=== PATIENT | female | born 1950 | race American Indian/Alaskan Native ===

== ENCOUNTER 2018-01-08 18:05 | Emergency (ER) | payer MEDICARE, MEDICAID ==
[2018-01-08] MEDS ORDERED: Sodium Chloride 0.9% 10 ML Syringe FLUSH PRN (18:34)
[2018-01-08] MEDS ORDERED: Codeine/Promethazine 10-6.25 MG/5 ML Syrup 5 ML UD Cup PO ONE (18:35)
[2018-01-08] MEDS ORDERED: Albuterol/Ipratropium 3.0-0.5 MG/3 ML Neb Soln NEB ONE (18:35)
[2018-01-08] MEDS ORDERED: methylPREDNISolone Sodium Succinate 125 MG/2 ML SDV IVPUSH ONE (18:36)
[2018-01-08 19:17] LABS: CHLORIDE,CL 107 mmol/L (101-111); SODIUM,NA 138 mmol/L (135-145)
--- NOTE | 2018-01-08 19:22 | EDM.PDOC ---
ED HPI GENERAL MEDICAL PROBLEM - General Chief Complaint: Respiratory Problem Stated Complaint: [id number] SOB - COUGHING Time Seen by Provider: 01/08/18 18:55 Source of Information: Reports: Patient History Limitations: Reports: No Limitations - History of Present Illness INITIAL COMMENTS - FREE TEXT/NARRATIVE: This 67 yo female patient reports to the ED with increased shortness of breath. The patient reports she was at the [facility] today (from [id number]) and was given an inhaler, cough medication and antibiotics. The patient reports she took the inhaler x1 and the cough medication x1 with no symptom relief. The patient has not taken any of the antibiotics at this time. The patient reports she was advised that she had bronchitis. The patient has not had similar symptoms in the past. Onset: Today Duration: Constant, Getting Worse Location: Reports: Chest Quality: Reports: Other Severity: Moderate Improves with: Reports: None Worsens with: Reports: None Associated Symptoms: Reports: cough w sputum, Shortness of Breath Treatments [employer]: Reports: Other (see below) (inhaler, cough medication) Chest Pain Score (Numeric/FACES): 7 - Related Data Allergies Allergy/AdvReac Type Severity Reaction Status Date / Time No Known Allergies Allergy Verified 10/25/13 18:28 Home Meds: Home Meds Celecoxib [CeleBREX] 200 mg PO DAILY 10/25/13 [History] buPROPion [Wellbutrin XL] 300 mg PO BEDTIME 10/25/13 [History] Past Medical History Respiratory History: Reports: Bronchitis, Recurrent Social & Family History - Tobacco Use Smoking Status *Q: Current Every Day Smoker Years of Tobacco use: 40 Packs/Tins Daily: 0.7 - Caffeine Use Caffeine Use: Reports: Coffee, Soda, Tea - Recreational Drug Use Recreational Drug Use: No - Living Situation & Occupation Living situation: Reports: with Family Occupation: Retired ED ROS GENERAL - Review of Systems Review Of Systems: ROS reveals no pertinent complaints other than HPI. ED EXAM, GENERAL - Physical Exam Exam: See Below Exam Limited By: No Limitations General Appearance: Alert, WD/WN, Moderate Distress Eye Exam: Bilateral Eye: EOMI, Normal Inspection, PERRL Ears: Normal External Exam, Normal Canal, Hearing Grossly Normal, Normal TMs Nose: Normal Inspection, Normal Mucosa, No Blood Throat/Mouth: Normal Inspection, Normal Lips, Normal Teeth, Normal Gums, Normal Oropharynx, Normal Voice, No Airway Compromise Head: Atraumatic, Normocephalic Neck: Normal Inspection, Supple, Non-Tender, Full Range of Motion Respiratory/Chest: Decreased Breath Sounds, Rhonchi (diffuse) Cardiovascular: Normal Peripheral Pulses, Regular Rate, Rhythm, No Edema, No Gallop, No JVD, No Murmur, No Rub GI/Abdominal: Normal Bowel Sounds, Soft, Non-Tender, No Organomegaly, No Distention, No Abnormal Bruit, No Mass (Female) Exam: Deferred Rectal (Female) Exam: Deferred Extremities: Normal Inspection, Normal Range of Motion, Non-Tender, Normal Capillary Refill, No Pedal Edema Neurological: Alert, Oriented, CN II-XII Intact, Normal Cognition, Normal Gait, Normal Reflexes, No Motor/Sensory Deficits Psychiatric: Normal Affect, Normal Mood Skin Exam: Warm, Dry, Intact, Normal Color, No Rash Lymphatic: No Adenopathy Course - Vital Signs Last Recorded V/S: Last Vital Signs Temp 36.8 C 01/08/18 18:34 Pulse 104 H 01/08/18 18:34 Resp 20 01/08/18 18:34 BP 120/75 01/08/18 18:34 Pulse Ox 96 01/08/18 18:34 - Orders/Labs/Meds Orders: Active Orders 24 hr Category Date Time Status Peripheral IV Care [RC] . DIRECTED Care 01/08/18 18:35 Active RT Aerosol Therapy [RC] ASDIRECTED Care 01/08/18 18:35 Active CULTURE BLOOD [BC] Stat Lab 01/08/18 18:50 Received CULTURE BLOOD [BC] Stat Lab 01/08/18 18:53 Received Sodium Chloride 0.9% [Saline Flush] Med 01/08/18 18:34 Active 10 ml FLUSH ASDIRECTED PRN Blood Culture x2 Reflex Set [OM.PC] Stat Oth 01/08/18 18:34 Ordered Peripheral IV Insertion Adult [OM.PC] Stat Oth 01/08/18 18:34 Ordered Medication Orders Sodium Chloride (Saline Flush) 10 ml FLUSH ASDIRECTED PRN PRN Reason: Keep Vein Open Last Admin: 01/08/18 19:11 Dose: 10 ml Labs: Laboratory Tests 01/08/18 01/08/18 01/08/18 Range/Units 18:50 18:50 18:50 WBC 13.0 H (5.0-10.0) 10^3/uL RBC 4.70 (4.2-5.4) 10^6/uL Hgb 13.8 (12.0-16.0) g/dL Hct 42.2 (37.0-47.0) % MCV 89.8 (80-100) fL MCH 29.4 (27.0-34.0) pg MCHC 32.7 L (33.0-35.0) g/dL Plt Count 275 (150-450) 10^3/uL Neut % (Auto) 72.4 (42.2-75.2) % Lymph % (Auto) 14.6 L (20.5-50.1) % [place] % (Auto) 5.8 (2-8) % Eos % (Auto) 7.0 H (1.0-3.0) % Baso % (Auto) 0.2 (0.0-1.0) % Sodium 138 (135-145) mmol/L Potassium 3.4 L (3.6-5.0) mmol/L Chloride 107 (101-111) mmol/L Carbon Dioxide 23.0 (21.0-31.0) mmol/L Anion Gap 11.4 BUN 11 (7-18) mg/dL Creatinine 0.7 (0.6-1.3) mg/dL Est Cr Clr Drug Dosing 70.18 mL/min Estimated GFR (MDRD) > 60 BUN/Creatinine Ratio 15.71 Glucose 117 H (74-105) mg/dL Lactic Acid 1.2 (0.5-2.2) mmol/L Calcium 9.3 (8.4-10.2) mg/dl Total Bilirubin 0.6 (0.2-1.0) mg/dL AST 18 (10-42) IU/L ALT 14 (10-60) IU/L Alkaline Phosphatase 104 (42-121) IU/L Total Protein 8.0 (6.7-8.2) g/dl Albumin 4.0 (3.2-5.5) g/dl Globulin 4.0 Albumin/Globulin Ratio 1.00 Meds: Medications Generic Name Dose Route Start Last Admin Trade Name Freq PRN Reason Stop Dose Admin Sodium Chloride 10 ml 01/08/18 18:34 01/08/18 19:11 Saline Flush FLUSH 10 ml ASDIRECTED PRN Administration Keep Vein Open Discontinued Medications Generic Name Dose Route Start Last Admin Trade Name Urban PRN Reason Stop Dose Admin Albuterol/Ipratropium 3 ml 01/08/18 18:35 01/08/18 19:07 Duoneb 3.0-0.5 Mg/3 Ml NEB 01/08/18 18:36 3 ml ONETIME ONE Administration Ceftriaxone Sodium 1 gm 01/08/18 19:41 Rocephin IVPUSH 01/08/18 19:42 ONETIME ONE Methylprednisolone Sodium Succinate 125 mg 01/08/18 18:36 01/08/18 19:11 Solu-Medrol IVPUSH 01/08/18 18:37 125 mg ONETIME ONE Administration Promethazine HCl/Codeine 10 ml 01/08/18 18:35 01/08/18 19:08 Phenergan With Codeine PO 01/08/18 18:36 10 ml ONETIME ONE Administration Departure - Departure Time of Disposition: 19:42 Disposition: Home, Self-Care 01 Condition: Fair Clinical Impression: Bronchitis - Discharge Information Instructions: Upper Respiratory Infection, Adult, [id number] Referrals: Rogelio Durant [Primary Care Provider] - Forms: ED Department Discharge Care Plan Goals: The patient was advised of the examination and lab results during the visit. The patient was given an injection of SoluMedrol, a nebulizer treatment and a dose of IV Rocephin while in the ED. The patient was discharged with a script for a Medrol Dose Pack to take as directed. The patient should start the Medrol Dose Pack tomorrow. The patient should continue with the treatments prescribed by the [facility]. If the patient has any additional symptoms or concerns, the patient should follow-up with her primary care facility or return to the emergency department.
[2018-01-08] MEDS ORDERED: cefTRIAXone 1 GM Vial IVPUSH ONE (19:41)
== END 2018-01-08 20:06 | disposition home or self-care (01) ==
LOC: DL.ED 18:05
DX: J40 Bronchitis, not specified as acute or chronic (principal); F17.210 Nicotine dependence, cigarettes, uncomplicated; Z79.899 Other long term (current) drug therapy
CPT/HCPCS: 36415; 71046; 80053; 83605; 85025; 87040; 94640; 96374; 96375; 99283; 99285; A9270; J0696; J2930; J7050

== ENCOUNTER 2018-01-20 20:07 | Inpatient (IN) | payer MEDICARE, MEDICAID ==
[2018-01-20] MEDS ORDERED: methylPREDNISolone Sodium Succinate 125 MG/2 ML SDV IVPUSH ONE (20:10)
[2018-01-20] MEDS ORDERED: Codeine/Promethazine 10-6.25 MG/5 ML Syrup 5 ML UD Cup PO ONE (20:10)
--- NOTE | 2018-01-20 20:17 | EDM.PDOC ---
ED HPI GENERAL MEDICAL PROBLEM - General Chief Complaint: Respiratory Problem Stated Complaint: [id number] IN BY AMBULANCE Time Seen by Provider: 01/20/18 20:14 Source of Information: Reports: Patient History Limitations: Reports: No Limitations - History of Present Illness INITIAL COMMENTS - FREE TEXT/NARRATIVE: was here 12 days ago had w/u, d/c with Rx. got bad again today. cough & sob. nebs not helping. - Related Data Allergies Allergy/AdvReac Type Severity Reaction Status Date / Time No Known Allergies Allergy Verified 01/20/18 20:37 Home Meds: Home Meds Celecoxib [CeleBREX] 200 mg PO DAILY 10/25/13 [History] buPROPion [Wellbutrin XL] 300 mg PO BEDTIME 10/25/13 [History] Past Medical History Respiratory History: Reports: Bronchitis, Recurrent Social & Family History - Caffeine Use Caffeine Use: Reports: Coffee, Soda, Tea - Living Situation & Occupation Living situation: Reports: with Family Occupation: Retired ED ROS GENERAL - Review of Systems Review Of Systems: ROS reveals no pertinent complaints other than HPI. ED EXAM, GENERAL - Physical Exam Exam: See Below Exam Limited By: No Limitations General Appearance: Alert, WD/WN, Mild Distress, Other (cough spasm) Ears: Hearing Grossly Normal Throat/Mouth: Normal Voice, No Airway Compromise Head: Atraumatic Neck: Non-Tender, Full Range of Motion Respiratory/Chest: No Accessory Muscle Use, Rhonchi, Wheezing Cardiovascular: Regular Rate, Rhythm GI/Abdominal: Soft, Non-Tender Neurological: Alert, Oriented, Normal Cognition, Normal Gait, No Motor/Sensory Deficits Psychiatric: Flat Affect Skin Exam: Warm, Dry, Normal Color Lymphatic: No Adenopathy Course - Vital Signs Last Recorded V/S: Last Vital Signs Temp 36.6 C 01/20/18 20:11 Pulse 106 H 01/20/18 20:11 Resp 21 H 01/20/18 20:11 BP 128/64 01/20/18 20:11 Pulse Ox 98 01/20/18 20:11 - Orders/Labs/Meds Orders: Active Orders 24 hr Category Date Time Status CULTURE BLOOD [BC] Stat Lab 01/20/18 20:15 Received Labs: Laboratory Tests 01/20/18 01/20/18 01/20/18 Range/Units 20:15 20:15 20:15 WBC 14.4 H (5.0-10.0) 10^3/uL RBC 4.79 (4.2-5.4) 10^6/uL Hgb 14.0 (12.0-16.0) g/dL Hct 43.1 (37.0-47.0) % MCV 90.0 (80-100) fL MCH 29.2 (27.0-34.0) pg MCHC 32.5 L (33.0-35.0) g/dL Plt Count 262 (150-450) 10^3/uL Neut % (Auto) 68.7 (42.2-75.2) % Lymph % (Auto) 14.6 L (20.5-50.1) % [place] % (Auto) 5.8 (2-8) % Eos % (Auto) 10.7 H (1.0-3.0) % Baso % (Auto) 0.2 (0.0-1.0) % Sodium 142 (135-145) mmol/L Potassium 3.5 L (3.6-5.0) mmol/L Chloride 110 (101-111) mmol/L Carbon Dioxide 23.0 (21.0-31.0) mmol/L Anion Gap 12.5 BUN 8 (7-18) mg/dL Creatinine 0.8 (0.6-1.3) mg/dL Est Cr Clr Drug Dosing TNP Estimated GFR (MDRD) > 60 BUN/Creatinine Ratio 10.00 Glucose 101 (74-105) mg/dL Lactic Acid 2.3 H (0.5-2.2) mmol/L Calcium 8.9 (8.4-10.2) mg/dl Total Bilirubin 0.7 (0.2-1.0) mg/dL AST 20 (10-42) IU/L ALT 16 (10-60) IU/L Alkaline Phosphatase 103 (42-121) IU/L Total Protein 7.3 (6.7-8.2) g/dl Albumin 3.9 (3.2-5.5) g/dl Globulin 3.4 Albumin/Globulin Ratio 1.15 Urine Color (YELLOW) Urine Appearance (CLEAR) Urine pH (5.0-9.0) Ur Specific [place] (1.005-1.030) Urine Protein (NEGATIVE) Urine Glucose (UA) (NEGATIVE) Urine Ketones (NEGATIVE) Urine Occult Blood (NEGATIVE) Urine Nitrite (NEGATIVE) Urine Bilirubin (NEGATIVE) Urine Urobilinogen (0.2-1.0) mg/dL Ur Leukocyte Esterase (NEGATIVE) Urine RBC /HPF Urine WBC (0-5/HPF) /HPF Ur Epithelial Cells /HPF Urine Bacteria (0-FEW/HPF) /HPF 01/20/18 Range/Units 20:31 WBC (5.0-10.0) 10^3/uL RBC (4.2-5.4) 10^6/uL Hgb (12.0-16.0) g/dL Hct (37.0-47.0) % MCV (80-100) fL MCH (27.0-34.0) pg MCHC (33.0-35.0) g/dL Plt Count (150-450) 10^3/uL Neut % (Auto) (42.2-75.2) % Lymph % (Auto) (20.5-50.1) % [place] % (Auto) (2-8) % Eos % (Auto) (1.0-3.0) % Baso % (Auto) (0.0-1.0) % Sodium (135-145) mmol/L Potassium (3.6-5.0) mmol/L Chloride (101-111) mmol/L Carbon Dioxide (21.0-31.0) mmol/L Anion Gap BUN (7-18) mg/dL Creatinine (0.6-1.3) mg/dL Est Cr Clr Drug Dosing Estimated GFR (MDRD) BUN/Creatinine Ratio Glucose (74-105) mg/dL Lactic Acid (0.5-2.2) mmol/L Calcium (8.4-10.2) mg/dl Total Bilirubin (0.2-1.0) mg/dL AST (10-42) IU/L ALT (10-60) IU/L Alkaline Phosphatase (42-121) IU/L Total Protein (6.7-8.2) g/dl Albumin (3.2-5.5) g/dl Globulin Albumin/Globulin Ratio Urine Color Yellow (YELLOW) Urine Appearance Clear (CLEAR) Urine pH 5.5 (5.0-9.0) Ur Specific [place] <= 1.005 (1.005-1.030) Urine Protein Negative (NEGATIVE) Urine Glucose (UA) Negative (NEGATIVE) Urine Ketones Negative (NEGATIVE) Urine Occult Blood Trace-intact H (NEGATIVE) Urine Nitrite Negative (NEGATIVE) Urine Bilirubin Negative (NEGATIVE) Urine Urobilinogen 0.2 (0.2-1.0) mg/dL Ur Leukocyte Esterase Negative (NEGATIVE) Urine RBC 0-5 /HPF Urine WBC Not seen (0-5/HPF) /HPF Ur Epithelial Cells Rare /HPF Urine Bacteria Rare (0-FEW/HPF) /HPF Meds: Medications Discontinued Medications Generic Name Dose Route Start Last Admin Trade Name Freq PRN Reason Stop Dose Admin Methylprednisolone Sodium Succinate 125 mg 01/20/18 20:10 01/20/18 20:25 Solu-Medrol IVPUSH 01/20/18 20:11 125 mg ONETIME ONE Administration Promethazine HCl/Codeine 5 ml 01/20/18 20:10 01/20/18 20:25 Phenergan With Codeine PO 01/20/18 20:11 5 ml ONETIME ONE Administration - Re-Assessments/Exams Free Text/Narrative Re-Assessment/Exam: 01/20/18 21:[address] Bolden who kindly admitted pt. Departure - Departure Time of Disposition: 21:42 Disposition: Admitted As Inpatient 66 Condition: Good Clinical Impression: Pneumonia Qualifiers: Pneumonia type: due to unspecified organism Lung location: lower lobe of lung - Discharge Information Forms: ED Department Discharge - My Orders Last 24 Hours: My Active Orders 01/20/18 20:15 CULTURE BLOOD [BC] Stat - Assessment/Plan Last 24 Hours: My Active Orders 01/20/18 20:15 CULTURE BLOOD [BC] Stat
[2018-01-20 20:39] LABS: CHLORIDE,CL 110 mmol/L (101-111); SODIUM,NA 142 mmol/L (135-145)
[2018-01-20] MEDS ORDERED: cefTRIAXone 500 MG Vial IVPUSH ONE (22:02)
[2018-01-20] MEDS ORDERED: Potassium Chloride 10 MEQ Tab.ER PO ONE (22:38)
[2018-01-20] MEDS ORDERED: Docusate Sodium 100 MG Cap PO PRN (22:39)
[2018-01-20] MEDS ORDERED: oxyCODONE 5 MG Tab PO PRN (22:39)
[2018-01-20] MEDS ORDERED: Ondansetron 4 MG/2 ML SDV IVPUSH PRN (22:39)
[2018-01-20] MEDS ORDERED: Sodium Chloride 0.9% 10 ML Syringe FLUSH PRN (22:39)
[2018-01-20] MEDS ORDERED: Ondansetron 4 MG Tab.DIS PO PRN (22:39)
[2018-01-20] MEDS ORDERED: Ibuprofen 400 MG Tab PO PRN (22:39)
[2018-01-20] MEDS ORDERED: Zolpidem 5 MG Tab PO PRN (22:39)
[2018-01-20] MEDS ORDERED: Sodium Chloride 0.9% 500 ML IV SCH (22:45)
--- NOTE | 2018-01-20 22:50 | PCM.HP ---
H&P History of Present Illness - General Date of Service: 01/20/18 Admit Problem/Dx: Admission Diagnosis/Problem Admission Diagnosis/Problem Pneumonia - History of Present Illness Initial Comments - Free Text/Narative: The patient is a 67-year-old lady with a history of smoking. She has a history of depression. The patient has had cough associated shortness of breath for about 2 weeks. She was evaluated about 2 weeks ago and was treated with azithromycin. She also had Robitussin at home which did not help the coughing. She says she has coughing spells that makes her very anxious and short of breath. She did not notice fever, the sputum is mostly dry, nonproductive. She has been a smoker but in the past 2 weeks she is trying to cut down. No associated chest pain but she heard herself wheezing. She has had albuterol to use at home. No abdominal pain, no leg swelling. - Related Data Allergies/Adverse Reactions: Allergies Allergy/AdvReac Type Severity Reaction Status Date / Time No Known Allergies Allergy Verified 01/20/18 22:49 Home Medications: Home Meds Celecoxib [CeleBREX] 200 mg PO DAILY 10/25/13 [History] buPROPion [Wellbutrin XL] 300 mg PO BEDTIME 10/25/13 [History] Past Medical History Respiratory History: Reports: Bronchitis, Recurrent Psychiatric History: Reports: Depression Social & Family History - Tobacco Use Smoking Status *Q: Current Every Day Smoker Years of Tobacco use: 47 Packs/Tins Daily: 20 - Caffeine Use Caffeine Use: Reports: Coffee, Soda, Tea - Living Situation & Occupation Living situation: Reports: with Family Occupation: Retired H&P Review of Systems - Review of Systems: Review Of Systems: See Below General: Reports: Malaise, Weakness. Denies: Fever HEENT: Reports: No Symptoms Pulmonary: Reports: Shortness of Breath, Wheezing, Cough. Denies: Sputum, Hemoptysis Cardiovascular: Denies: Chest Pain, Edema Gastrointestinal: Denies: Abdominal Pain Genitourinary: Denies: Dysuria Musculoskeletal: Denies: Neck Pain Psychiatric: Denies: Confusion Exam - Exam Exam: See Below - Vital Signs Vital Signs: Last Vital Signs Temp 36.8 C 01/20/18 22:14 Pulse 99 01/20/18 22:14 Resp 19 06/17/18 22:14 BP 153/80 H 01/20/18 22:14 Pulse Ox 6 L 01/20/18 22:14 - Exam Quality Assessment: No: Supplemental Oxygen General: Alert, Oriented Neck: Supple Lungs: Normal Respiratory Effort, Decreased Breath Sounds. No: Wheezing Cardiovascular: Regular Rate, Regular Rhythm GI/Abdominal Exam: Normal Bowel Sounds, Soft, Non-Tender Extremities: No Pedal Edema Neuro Extensive - Mental Status: Alert, Oriented x3, Normal Mood/Affect - Patient Data Lab Results Last 24 hrs: Laboratory Results - last 24 hr 01/20/18 01/20/18 01/20/18 Range/Units 20:15 20:15 20:15 WBC 14.4 H (5.0-10.0) 10^3/uL RBC 4.79 (4.2-5.4) 10^6/uL Hgb 14.0 (12.0-16.0) g/dL Hct 43.1 (37.0-47.0) % MCV 90.0 (80-100) fL MCH 29.2 (27.0-34.0) pg MCHC 32.5 L (33.0-35.0) g/dL Plt Count 262 (150-450) 10^3/uL Neut % (Auto) 68.7 (42.2-75.2) % Lymph % (Auto) 14.6 L (20.5-50.1) % [place] % (Auto) 5.8 (2-8) % Eos % (Auto) 10.7 H (1.0-3.0) % Baso % (Auto) 0.2 (0.0-1.0) % Sodium 142 (135-145) mmol/L Potassium 3.5 L (3.6-5.0) mmol/L Chloride 110 (101-111) mmol/L Carbon Dioxide 23.0 (21.0-31.0) mmol/L Anion Gap 12.5 BUN 8 (7-18) mg/dL Creatinine 0.8 (0.6-1.3) mg/dL Est Cr Clr Drug Dosing TNP Estimated GFR (MDRD) > 60 BUN/Creatinine Ratio 10.00 Glucose 101 (74-105) mg/dL Lactic Acid 2.3 H (0.5-2.2) mmol/L Calcium 8.9 (8.4-10.2) mg/dl Total Bilirubin 0.7 (0.2-1.0) mg/dL AST 20 (10-42) IU/L ALT 16 (10-60) IU/L Alkaline Phosphatase 103 (42-121) IU/L Total Protein 7.3 (6.7-8.2) g/dl Albumin 3.9 (3.2-5.5) g/dl Globulin 3.4 Albumin/Globulin Ratio 1.15 Urine Color (YELLOW) Urine Appearance (CLEAR) Urine pH (5.0-9.0) Ur Specific [place] (1.005-1.030) Urine Protein (NEGATIVE) Urine Glucose (UA) (NEGATIVE) Urine Ketones (NEGATIVE) Urine Occult Blood (NEGATIVE) Urine Nitrite (NEGATIVE) Urine Bilirubin (NEGATIVE) Urine Urobilinogen (0.2-1.0) mg/dL Ur Leukocyte Esterase (NEGATIVE) Urine RBC /HPF Urine WBC (0-5/HPF) /HPF Ur Epithelial Cells /HPF Urine Bacteria (0-FEW/HPF) /HPF // Range/Units 20:31 WBC (5.0-10.0) 10^3/uL RBC (4.2-5.4) 10^6/uL Hgb (12.0-16.0) g/dL Hct (37.0-47.0) % MCV (80-100) fL MCH (27.0-34.0) pg MCHC (33.0-35.0) g/dL Plt Count (150-450) 10^3/uL Neut % (Auto) (42.2-75.2) % Lymph % (Auto) (20.5-50.1) % [place] % (Auto) (2-8) % Eos % (Auto) (1.0-3.0) % Baso % (Auto) (0.0-1.0) % Sodium (135-145) mmol/L Potassium (3.6-5.0) mmol/L Chloride (101-111) mmol/L Carbon Dioxide (21.0-31.0) mmol/L Anion Gap BUN (7-18) mg/dL Creatinine (0.6-1.3) mg/dL Est Cr Clr Drug Dosing Estimated GFR (MDRD) BUN/Creatinine Ratio Glucose (74-105) mg/dL Lactic Acid (0.5-2.2) mmol/L Calcium (8.4-10.2) mg/dl Total Bilirubin (0.2-1.0) mg/dL AST (10-42) IU/L ALT (10-60) IU/L Alkaline Phosphatase (42-121) IU/L Total Protein (6.7-8.2) g/dl Albumin (3.2-5.5) g/dl Globulin Albumin/Globulin Ratio Urine Color Yellow (YELLOW) Urine Appearance Clear (CLEAR) Urine pH 5.5 (5.0-9.0) Ur Specific [place] <= 1.005 (1.005-1.030) Urine Protein Negative (NEGATIVE) Urine Glucose (UA) Negative (NEGATIVE) Urine Ketones Negative (NEGATIVE) Urine Occult Blood Trace-intact H (NEGATIVE) Urine Nitrite Negative (NEGATIVE) Urine Bilirubin Negative (NEGATIVE) Urine Urobilinogen 0.2 (0.2-1.0) mg/dL Ur Leukocyte Esterase Negative (NEGATIVE) Urine RBC 0-5 /HPF Urine WBC Not seen (0-5/HPF) /HPF Ur Epithelial Cells Rare /HPF Urine Bacteria Rare (0-FEW/HPF) /HPF Result Diagrams: 01/20/18 20:15 01/20/18 20:15 Imaging Impressions Last 24 hrs: Chest x-ray per official reading right lower lobe infiltrate. - Problem List (1) Bronchitis SNOMED Code(s): 19937997 ICD Code: J40 - BRONCHITIS, NOT SPECIFIED ACUTE OR CHRONIC Status: Acute Current Visit: No (2) Pneumonia SNOMED Code(s): 473509415 ICD Code: J18.9 - PNEUMONIA, UNSPECIFIED ORGANISM Status: Acute Current Visit: No Qualifiers: Pneumonia type: due to unspecified organism Lung location: lower lobe of lung Problem List Initiated/Reviewed/Updated: Yes Orders Last 24hrs: Active Orders 24 hr Category Date Time Status Patient Status [ADT] Routine ADT 01/20/18 22:39 Ordered Oxygen Therapy [RC] PRN Care 01/20/18 22:39 Ordered Peripheral IV Care [RC] . DIRECTED Care 01/20/18 22:41 Ordered RT Aerosol Therapy [RC] ASDIRECTED Care 01/20/18 22:38 Ordered Up With Assistance [RC] ASDIRECTED Care 01/20/18 22:39 Ordered VTE/DVT Education [RC] PER UNIT ROUTINE Care 01/20/18 22:39 Ordered Vital Signs [RC] Q4H Care 01/20/18 22:39 Ordered Regular Diet [DIET] Diet 01/20/18 Breakfast Ordered BASIC METABOLIC PANEL,BMP [CHEM] AM Lab 01/21/18 05:15 Ordered CBC WITH AUTO DIFF [HEME] AM Lab 01/21/18 05:15 Ordered CULTURE BLOOD [BC] Stat Lab 01/20/18 20:15 Received CULTURE SPUTUM + SMEAR [RM] Routine Lab 01/20/18 22:35 Ordered LACTIC ACID [CHEM] Timed Lab 01/20/18 23:45 Ordered Acetaminophen [Tylenol] Med 01/20/18 22:39 Ordered 650 mg PO Q4H PRN Albuterol [Proventil Neb Soln] Med 01/20/18 22:38 Ordered 2.5 mg NEB Q6HRRT PRN Azithromycin [Zithromax] 500 mg Med 01/20/18 22:45 Ordered Sodium Chloride 0.9% [Normal Saline] 250 ml IV Q24H Celecoxib [CeleBREX] Med 01/21/18 09:00 Ordered 200 mg PO DAILY Dextromethorphan/guaiFENesin [Robitussin DM] Med 01/20/18 22:31 Ordered 10 ml PO Q6H PRN Docusate Sodium [Colace] Med 01/20/18 22:39 Ordered 100 mg PO BID PRN Heparin Sodium Med 01/21/18 06:00 Ordered 5,000 units SUBCUT Q8HR Ibuprofen [Motrin] Med 01/20/18 22:39 Ordered 400 mg PO Q6H PRN Ondansetron [Zofran ODT] Med 01/20/18 22:39 Ordered 4 mg PO Q4H PRN Ondansetron [Zofran] Med 01/20/18 22:39 Ordered 4 mg IVPUSH Q6H PRN Potassium Chloride [Klor-Con 10] Med 01/20/18 22:38 Once 40 meq PO ONETIME ONE Sodium Chloride 0.9% [Normal Saline] 500 ml Med 01/20/18 22:45 Ordered IV ASDIRECTED Sodium Chloride 0.9% [Saline Flush] Med 01/20/18 22:39 Ordered 10 ml FLUSH ASDIRECTED PRN Zolpidem [Ambien] Med 01/20/18 22:39 Ordered 5 mg PO BEDTIME PRN buPROPion [Wellbutrin XL] Med 01/21/18 21:00 Ordered 300 mg PO BEDTIME cefTRIAXone [Rocephin] Med 01/21/18 22:00 Ordered 1 gm IVPUSH Q24H oxyCODONE Med 01/20/18 22:39 Ordered 5 mg PO Q4H PRN Antiembolic Hose [OM.PC] Per Unit Routine Oth 01/20/18 22:40 Ordered Peripheral IV Insertion Adult [OM.PC] Routine Oth 01/20/18 22:39 Ordered Saline Lock Insert [OM.PC] Routine Oth 01/20/18 22:39 Ordered Resuscitation Status Routine Resus Stat 01/20/18 22:39 Ordered Medication Orders Acetaminophen (Tylenol) 650 mg PO Q4H PRN PRN Reason: Pain (Mild 1-3)/fever Albuterol (Proventil Neb Soln) 2.5 mg NEB Q6HRRT PRN PRN Reason: sob Ceftriaxone Sodium (Rocephin) 1 gm IVPUSH Q24H JACKY Docusate Sodium (Colace) 100 mg PO BID PRN PRN Reason: Constipation Guaifenesin/Phenylephrine HCl (Robitussin Dm) 10 ml PO Q6H PRN PRN Reason: Cough Heparin Sodium (Porcine) (Heparin Sodium) 5,000 units SUBCUT Q8HR JACKY Azithromycin 500 mg/ Sodium (Chloride) 250 mls @ 250 mls/hr IV Q24H JACKY Sodium Chloride (Normal Saline) 500 mls @ 250 mls/hr IV ASDIRECTED JACKY Stop: 01/21/18 00:46 Ibuprofen (Motrin) 400 mg PO Q6H PRN PRN Reason: Pain (mild 1-3) Non-Formulary Medication (Bupropion [Wellbutrin Xl]) 300 mg PO BEDTIME JACKY Non-Formulary Medication (Celecoxib [Celebrex]) 200 mg PO DAILY JACKY Ondansetron HCl (Zofran Odt) 4 mg PO Q4H PRN PRN Reason: nausea, able to take PO Ondansetron HCl (Zofran) 4 mg IVPUSH Q6H PRN PRN Reason: Nausea/Vomiting Oxycodone HCl (Oxycodone) 5 mg PO Q4H PRN PRN Reason: Pain (moderate 4-6) Potassium Chloride (Klor-Con 10) 40 meq PO ONETIME ONE Stop: 01/20/18 22:39 Sodium Chloride (Saline Flush) 10 ml FLUSH ASDIRECTED PRN PRN Reason: Keep Vein Open Zolpidem Tartrate (Ambien) 5 mg PO BEDTIME PRN PRN Reason: Sleep Assessment/Plan Comment:: The patient is a 67-year-old lady who presented with cough, shortness of breath. #1 community-acquired pneumonia Will obtain blood culture, sputum culture Start treatment with azithromycin, ceftriaxone #2 minimally elevated lactic acid I do not think that the patient has severe sepsis We will give the patient IV fluid, recheck lactic acid #3 History of smoking Cessation was discussed Will give nicotine patch #4 hypokalemia We'll replace and recheck #5 DVT prophylaxis will be with subcutaneous heparin
[2018-01-20] MEDS: Acetaminophen 325 MG Tab PO PRN (23:29)
[2018-01-20] MEDS: Azithromycin 500 MG in Sodium Chloride 0.9% 250 ML IV SCH (23:32)
[2018-01-21] MEDS: Acetaminophen 325 MG Tab PO PRN ×2 (06:08→10:09)
[2018-01-21] MEDS: guaiFENesin/Dextromethorphan 100-10 MG/5 ML Soln 5 ML Cup PO PRN ×2 (06:12→12:16)
[2018-01-21] MEDS: Heparin Sodium 5,000 Units/ML Vial SUBCUT SCH ×3 (06:17→22:07)
[2018-01-21 06:25] LABS: CHLORIDE,CL 114 mmol/L (101-111); SODIUM,NA 141 mmol/L (135-145)
[2018-01-21] MEDS: Nicotine 14 MG/24 Hr Patch TRDERM SCH (10:41)
--- NOTE | 2018-01-21 12:36 | PCM.PN ---
- General Info Date of Service: 01/21/18 Admission Dx/Problem (Free Text): Admission Diagnosis/Problem Admission Diagnosis/Problem Pneumonia Subjective Update: Feeling better. Still coughing, no associated sputum production. Less shortness of breath. No chest pain. No fever. Functional Status: Reports: Tolerating Diet - Review of Systems General: Denies: Fever Pulmonary: Denies: Shortness of Breath Cardiovascular: Denies: Chest Pain Gastrointestinal: Denies: Abdominal Pain Neurological: Denies: Confusion - Patient Data Vitals - Most Recent: Last Vital Signs Temp 36.4 C 01/21/18 11:11 Pulse 67 01/21/18 11:11 Resp 20 01/21/18 11:11 BP 111/89 01/21/18 11:11 Pulse Ox 96 01/21/18 11:11 Weight - Most Recent: 76.748 kg I&O - Last 24 Hours: Intake & Output 01/20/18 01/21/18 01/21/18 22:59 06:59 14:59 Intake Total 500 750 Output Total 500 900 Balance 0 -150 Lab Results Last 24 Hours: Laboratory Results - last 24 hr 01/20/18 01/20/18 01/20/18 Range/Units 20:15 20:15 20:15 WBC 14.4 H (5.0-10.0) 10^3/uL RBC 4.79 (4.2-5.4) 10^6/uL Hgb 14.0 (12.0-16.0) g/dL Hct 43.1 (37.0-47.0) % MCV 90.0 (80-100) fL MCH 29.2 (27.0-34.0) pg MCHC 32.5 L (33.0-35.0) g/dL Plt Count 262 (150-450) 10^3/uL Neut % (Auto) 68.7 (42.2-75.2) % Lymph % (Auto) 14.6 L (20.5-50.1) % [place] % (Auto) 5.8 (2-8) % Eos % (Auto) 10.7 H (1.0-3.0) % Baso % (Auto) 0.2 (0.0-1.0) % Sodium 142 (135-145) mmol/L Potassium 3.5 L (3.6-5.0) mmol/L Chloride 110 (101-111) mmol/L Carbon Dioxide 23.0 (21.0-31.0) mmol/L Anion Gap 12.5 BUN 8 (7-18) mg/dL Creatinine 0.8 (0.6-1.3) mg/dL Est Cr Clr Drug Dosing TNP Estimated GFR (MDRD) > 60 BUN/Creatinine Ratio 10.00 Glucose 101 (74-105) mg/dL Lactic Acid 2.3 H (0.5-2.2) mmol/L Calcium 8.9 (8.4-10.2) mg/dl Total Bilirubin 0.7 (0.2-1.0) mg/dL AST 20 (10-42) IU/L ALT 16 (10-60) IU/L Alkaline Phosphatase 103 (42-121) IU/L Total Protein 7.3 (6.7-8.2) g/dl Albumin 3.9 (3.2-5.5) g/dl Globulin 3.4 Albumin/Globulin Ratio 1.15 Urine Color (YELLOW) Urine Appearance (CLEAR) Urine pH (5.0-9.0) Ur Specific [place] (1.005-1.030) Urine Protein (NEGATIVE) Urine Glucose (UA) (NEGATIVE) Urine Ketones (NEGATIVE) Urine Occult Blood (NEGATIVE) Urine Nitrite (NEGATIVE) Urine Bilirubin (NEGATIVE) Urine Urobilinogen (0.2-1.0) mg/dL Ur Leukocyte Esterase (NEGATIVE) Urine RBC /HPF Urine WBC (0-5/HPF) /HPF Ur Epithelial Cells /HPF Urine Bacteria (0-FEW/HPF) /HPF 01/20/18 01/20/18 01/21/18 Range/Units 20:31 23:55 05:25 WBC 10.2 H (5.0-10.0) 10^3/uL RBC 4.31 (4.2-5.4) 10^6/uL Hgb 12.5 D (12.0-16.0) g/dL Hct 39.2 (37.0-47.0) % MCV 91.0 (80-100) fL MCH 29.0 (27.0-34.0) pg MCHC 31.9 L (33.0-35.0) g/dL Plt Count 246 (150-450) 10^3/uL Neut % (Auto) 93.6 H (42.2-75.2) % Lymph % (Auto) 5.9 L (20.5-50.1) % [place] % (Auto) 0.3 L (2-8) % Eos % (Auto) 0.1 L (1.0-3.0) % Baso % (Auto) 0.1 (0.0-1.0) % Sodium (135-145) mmol/L Potassium (3.6-5.0) mmol/L Chloride (101-111) mmol/L Carbon Dioxide (21.0-31.0) mmol/L Anion Gap BUN (7-18) mg/dL Creatinine (0.6-1.3) mg/dL Est Cr Clr Drug Dosing Estimated GFR (MDRD) BUN/Creatinine Ratio Glucose (74-105) mg/dL Lactic Acid 1.4 (0.5-2.2) mmol/L Calcium (8.4-10.2) mg/dl Total Bilirubin (0.2-1.0) mg/dL AST (10-42) IU/L ALT (10-60) IU/L Alkaline Phosphatase (42-121) IU/L Total Protein (6.7-8.2) g/dl Albumin (3.2-5.5) g/dl Globulin Albumin/Globulin Ratio Urine Color Yellow (YELLOW) Urine Appearance Clear (CLEAR) Urine pH 5.5 (5.0-9.0) Ur Specific [place] <= 1.005 (1.005-1.030) Urine Protein Negative (NEGATIVE) Urine Glucose (UA) Negative (NEGATIVE) Urine Ketones Negative (NEGATIVE) Urine Occult Blood Trace-intact H (NEGATIVE) Urine Nitrite Negative (NEGATIVE) Urine Bilirubin Negative (NEGATIVE) Urine Urobilinogen 0.2 (0.2-1.0) mg/dL Ur Leukocyte Esterase Negative (NEGATIVE) Urine RBC 0-5 /HPF Urine WBC Not seen (0-5/HPF) /HPF Ur Epithelial Cells Rare /HPF Urine Bacteria Rare (0-FEW/HPF) /HPF 18 Range/Units 05:25 WBC (5.0-10.0) 10^3/uL RBC (4.2-5.4) 10^6/uL Hgb (12.0-16.0) g/dL Hct (37.0-47.0) % MCV (80-100) fL MCH (27.0-34.0) pg MCHC (33.0-35.0) g/dL Plt Count (150-450) 10^3/uL Neut % (Auto) (42.2-75.2) % Lymph % (Auto) (20.5-50.1) % [place] % (Auto) (2-8) % Eos % (Auto) (1.0-3.0) % Baso % (Auto) (0.0-1.0) % Sodium 141 (135-145) mmol/L Potassium 4.2 (3.6-5.0) mmol/L Chloride 114 H (101-111) mmol/L Carbon Dioxide 21.0 (21.0-31.0) mmol/L Anion Gap 10.2 BUN 8 (7-18) mg/dL Creatinine 0.8 (0.6-1.3) mg/dL Est Cr Clr Drug Dosing 61.40 Estimated GFR (MDRD) > 60 BUN/Creatinine Ratio Glucose 162 H (74-105) mg/dL Lactic Acid (0.5-2.2) mmol/L Calcium 8.8 (8.4-10.2) mg/dl Total Bilirubin (0.2-1.0) mg/dL AST (10-42) IU/L ALT (10-60) IU/L Alkaline Phosphatase (42-121) IU/L Total Protein (6.7-8.2) g/dl Albumin (3.2-5.5) g/dl Globulin Albumin/Globulin Ratio Urine Color (YELLOW) Urine Appearance (CLEAR) Urine pH (5.0-9.0) Ur Specific [place] (1.005-1.030) Urine Protein (NEGATIVE) Urine Glucose (UA) (NEGATIVE) Urine Ketones (NEGATIVE) Urine Occult Blood (NEGATIVE) Urine Nitrite (NEGATIVE) Urine Bilirubin (NEGATIVE) Urine Urobilinogen (0.2-1.0) mg/dL Ur Leukocyte Esterase (NEGATIVE) Urine RBC /HPF Urine WBC (0-5/HPF) /HPF Ur Epithelial Cells /HPF Urine Bacteria (0-FEW/HPF) /HPF Med Orders - Current: Current Medications Acetaminophen (Tylenol) 650 mg PO Q4H PRN PRN Reason: Pain (Mild 1-3)/fever Last Admin: 01/21/18 10:09 Dose: 650 mg Albuterol (Proventil Neb Soln) 2.5 mg NEB Q6HRRT PRN PRN Reason: sob Ceftriaxone Sodium (Rocephin) 1 gm IVPUSH Q24H [facility] Docusate Sodium (Colace) 100 mg PO BID PRN PRN Reason: Constipation Guaifenesin/Phenylephrine HCl (Robitussin Dm) 10 ml PO Q6H PRN PRN Reason: Cough Last Admin: 01/21/18 12:16 Dose: 10 ml Heparin Sodium (Porcine) (Heparin Sodium) 5,000 units SUBCUT Q8HR [facility] Last Admin: 01/21/18 06:17 Dose: Not Given Azithromycin 500 mg/ Sodium (Chloride) 250 mls @ 250 mls/hr IV Q24H [facility] Last Admin: 01/20/18 23:32 Dose: 250 mls/hr Ibuprofen (Motrin) 400 mg PO Q6H PRN PRN Reason: Pain (mild 1-3) Last Admin: 01/20/18 23:30 Dose: 400 mg Nicotine (Habitrol) 14 mg TRDERM DAILY [facility] Last Admin: 01/21/18 10:41 Dose: Not Given Non-Formulary Medication (Bupropion [Wellbutrin Xl]) 300 mg PO BEDTIME [facility] Non-Formulary Medication (Celecoxib [Celebrex]) 200 mg PO DAILY [facility] Ondansetron HCl (Zofran Odt) 4 mg PO Q4H PRN PRN Reason: nausea, able to take PO Ondansetron HCl (Zofran) 4 mg IVPUSH Q6H PRN PRN Reason: Nausea/Vomiting Oxycodone HCl (Oxycodone) 5 mg PO Q4H PRN PRN Reason: Pain (moderate 4-6) Sodium Chloride (Saline Flush) 10 ml FLUSH ASDIRECTED PRN PRN Reason: Keep Vein Open Zolpidem Tartrate (Ambien) 5 mg PO BEDTIME PRN PRN Reason: Sleep Last Admin: 01/20/18 23:31 Dose: 5 mg Discontinued Medications Ceftriaxone Sodium (Rocephin) 1,000 mg IVPUSH ONETIME ONE Stop: 01/20/18 22:31 Last Admin: 01/20/18 22:10 Dose: 1,000 mg Ceftriaxone Sodium (Rocephin) 1 gm IVPUSH Q24H [facility] Sodium Chloride (Normal Saline) 500 mls @ 250 mls/hr IV ASDIRECTED [facility] Stop: 01/21/18 00:46 Last Admin: 01/20/18 23:27 Dose: 250 mls/hr Methylprednisolone Sodium Succinate (Solu-Medrol) 125 mg IVPUSH ONETIME ONE Stop: 01/20/18 20:11 Last Admin: 01/20/18 20:25 Dose: 125 mg Potassium Chloride (Klor-Con 10) 40 meq PO ONETIME ONE Stop: 01/20/18 22:39 Last Admin: 01/20/18 23:28 Dose: 40 meq Promethazine HCl/Codeine (Phenergan With Codeine) 5 ml PO ONETIME ONE Stop: 01/20/18 20:11 Last Admin: 01/20/18 20:25 Dose: 5 ml - Exam General: Alert, Oriented Lungs: Normal Respiratory Effort, Decreased Breath Sounds Cardiovascular: Regular Rate, Regular Rhythm GI/Abdominal Exam: Normal Bowel Sounds, Soft, Non-Tender Extremities: No Pedal Edema - Problem List & Annotations (1) Bronchitis SNOMED Code(s): 56778780 Code(s): J40 - BRONCHITIS, NOT SPECIFIED ACUTE OR CHRONIC Status: Acute Current Visit: No (2) Pneumonia SNOMED Code(s): 176917330 Code(s): J18.9 - PNEUMONIA, UNSPECIFIED ORGANISM Status: Acute Current Visit: No Qualifiers: Pneumonia type: due to unspecified organism Lung location: lower lobe of lung - Problem List Review Problem List Initiated/Reviewed/Updated: Yes - My Orders Last 24 Hours: My Active Orders 01/20/18 22:31 Dextromethorphan/guaiFENesin [Robitussin DM] 10 ml PO Q6H PRN 01/20/18 22:35 CULTURE SPUTUM + SMEAR [RM] Routine 01/20/18 22:38 RT Aerosol Therapy [RC] ASDIRECTED Albuterol [Proventil Neb Soln] 2.5 mg NEB Q6HRRT PRN 01/20/18 22:39 Patient Status [ADT] Routine Oxygen Therapy [RC] PRN Up With Assistance [RC] ASDIRECTED VTE/DVT Education [RC] PER UNIT ROUTINE Vital Signs [RC] 08,12,16,20,04 Acetaminophen [Tylenol] 650 mg PO Q4H PRN Docusate Sodium [Colace] 100 mg PO BID PRN Ibuprofen [Motrin] 400 mg PO Q6H PRN Ondansetron [Zofran ODT] 4 mg PO Q4H PRN Ondansetron [Zofran] 4 mg IVPUSH Q6H PRN Sodium Chloride 0.9% [Saline Flush] 10 ml FLUSH ASDIRECTED PRN Zolpidem [Ambien] 5 mg PO BEDTIME PRN oxyCODONE 5 mg PO Q4H PRN Peripheral IV Insertion Adult [OM.PC] Routine Saline Lock Insert [OM.PC] Routine Resuscitation Status Routine 01/20/18 22:40 Antiembolic Hose [OM.PC] Per Unit Routine 01/20/18 23:00 Flutter Valve Therapy [RT Chest Physiotherapy] [RC] ASDIRECTED IS (RT) [RT Incentive Spirometry] [RC] ASDIRECTED Azithromycin [Zithromax] 500 mg Sodium Chloride 0.9% [Normal Saline] 250 ml IV Q24H 01/21/18 06:00 Heparin Sodium 5,000 units SUBCUT Q8HR 01/21/18 09:00 Celecoxib [CeleBREX] 200 mg PO DAILY Nicotine [Habitrol] 14 mg TRDERM DAILY 01/21/18 21:00 buPROPion [Wellbutrin XL] 300 mg PO BEDTIME 01/21/18 22:00 cefTRIAXone [Rocephin] 1 gm IVPUSH Q24H - Plan Plan:: The patient is a 67-year-old lady who presented with cough, shortness of breath. #1 community-acquired pneumonia Blood culture: pending sputum culture: pending Start treatment with azithromycin, ceftriaxone #2 COPD use duoneb prn #3 History of smoking Cessation was discussed Will give nicotine patch #4 DVT prophylaxis will be with subcutaneous heparin
[2018-01-21] MEDS: Albuterol 0.083% 2.5 MG/3 ML Neb Soln NEB PRN ×2 (14:34→22:08)
[2018-01-21] MEDS: Celecoxib 100 MG Cap PO SCH (16:42)
[2018-01-21] MEDS ORDERED: cefTRIAXone 1 GM Vial IVPUSH SCH (22:00)
[2018-01-21] MEDS: buPROPion 150 MG Tab.ER PO SCH (22:06)
[2018-01-21] MEDS: cefTRIAXone 1 GM Vial IVPUSH SCH (22:35)
[2018-01-21] MEDS: Azithromycin 500 MG in Sodium Chloride 0.9% 250 ML IV SCH (22:40)
[2018-01-22] MEDS: Heparin Sodium 5,000 Units/ML Vial SUBCUT SCH (06:30)
[2018-01-22] MEDS: guaiFENesin/Dextromethorphan 100-10 MG/5 ML Soln 5 ML Cup PO PRN ×2 (06:31→18:54)
[2018-01-22 06:56] LABS: CHLORIDE,CL 114 mmol/L (101-111); SODIUM,NA 143 mmol/L (135-145)
[2018-01-22] MEDS: Celecoxib 100 MG Cap PO SCH (08:22)
--- NOTE | 2018-01-22 10:38 | PCM.PN ---
- General Info Date of Service: 01/22/18 Admission Dx/Problem (Free Text): Admission Diagnosis/Problem Admission Diagnosis/Problem Pneumonia Subjective Update: Feeling better. Still coughing, no associated sputum production. Less shortness of breath. No chest pain. No fever overnight. Functional Status: Reports: Tolerating Diet - Review of Systems General: Reports: Weakness. Denies: Fever Pulmonary: Denies: Shortness of Breath Cardiovascular: Denies: Chest Pain Gastrointestinal: Denies: Abdominal Pain Neurological: Denies: Confusion - Patient Data Vitals - Most Recent: Last Vital Signs Temp 36.3 C 01/22/18 08:00 Pulse 63 01/22/18 08:00 Resp 20 01/22/18 08:00 BP 103/67 01/22/18 08:00 Pulse Ox 97 01/22/18 08:00 Weight - Most Recent: 76.748 kg I&O - Last 24 Hours: Intake & Output 01/21/18 01/22/18 01/22/18 22:59 06:59 14:59 Intake Total 900 Output Total 1800 900 Balance -1800 0 Lab Results Last 24 Hours: Laboratory Results - last 24 hr 01/22/18 01/22/18 Range/Units 06:22 06:22 WBC 15.6 H (5.0-10.0) 10^3/uL RBC 4.28 (4.2-5.4) 10^6/uL Hgb 12.6 (12.0-16.0) g/dL Hct 39.4 (37.0-47.0) % MCV 92.1 (80-100) fL MCH 29.4 (27.0-34.0) pg MCHC 32.0 L (33.0-35.0) g/dL Plt Count 230 (150-450) 10^3/uL Neut % (Auto) 69.7 (42.2-75.2) % Lymph % (Auto) 24.1 (20.5-50.1) % [place] % (Auto) 4.5 (2-8) % Eos % (Auto) 1.6 (1.0-3.0) % Baso % (Auto) 0.1 (0.0-1.0) % Sodium 143 (135-145) mmol/L Potassium 4.2 (3.6-5.0) mmol/L Chloride 114 H (101-111) mmol/L Carbon Dioxide 23.0 (21.0-31.0) mmol/L Anion Gap 10.2 BUN 13 (7-18) mg/dL Creatinine 0.9 (0.6-1.3) mg/dL Est Cr Clr Drug Dosing 54.58 mL/min Estimated GFR (MDRD) > 60 Glucose 97 (74-105) mg/dL Calcium 8.6 (8.4-10.2) mg/dl Steven Results Last 24 Hours: Microbiology 01/20/18 20:15 Aerobic Blood Culture - Preliminary Blood NO GROWTH AFTER 1 DAY Anaerobic Blood Culture - Preliminary NO GROWTH AFTER 1 DAY Med Orders - Current: Current Medications Acetaminophen (Tylenol) 650 mg PO Q4H PRN PRN Reason: Pain (Mild 1-3)/fever Last Admin: 01/21/18 10:09 Dose: 650 mg Albuterol (Proventil Neb Soln) 2.5 mg NEB Q6HRRT PRN PRN Reason: sob Last Admin: 01/21/18 22:08 Dose: 2.5 mg Bupropion HCl (Wellbutrin Xl) 300 mg PO BEDTIME [facility] Last Admin: 01/21/18 22:06 Dose: 300 mg Ceftriaxone Sodium (Rocephin) 1 gm IVPUSH Q24H [facility] Last Admin: 01/21/18 22:35 Dose: 1 gm Celecoxib (Celebrex) 200 mg PO DAILY [facility] Last Admin: 01/22/18 08:22 Dose: 200 mg Docusate Sodium (Colace) 100 mg PO BID PRN PRN Reason: Constipation Guaifenesin/Phenylephrine HCl (Robitussin Dm) 10 ml PO Q6H PRN PRN Reason: Cough Last Admin: 01/22/18 06:31 Dose: 10 ml Heparin Sodium (Porcine) (Heparin Sodium) 5,000 units SUBCUT Q8HR [facility] Last Admin: 01/22/18 06:30 Dose: 5,000 units Azithromycin 500 mg/ Sodium (Chloride) 250 mls @ 250 mls/hr IV Q24H [facility] Last Infusion: 01/22/18 01:10 Dose: Infused Ibuprofen (Motrin) 400 mg PO Q6H PRN PRN Reason: Pain (mild 1-3) Last Admin: 01/20/18 23:30 Dose: 400 mg Nicotine (Habitrol) 14 mg TRDERM DAILY [facility] Last Admin: 01/21/18 10:41 Dose: Not Given Ondansetron HCl (Zofran Odt) 4 mg PO Q4H PRN PRN Reason: nausea, able to take PO Ondansetron HCl (Zofran) 4 mg IVPUSH Q6H PRN PRN Reason: Nausea/Vomiting Oxycodone HCl (Oxycodone) 5 mg PO Q4H PRN PRN Reason: Pain (moderate 4-6) Pantoprazole Sodium (Protonix) 40 mg PO BIDAC [facility] Sodium Chloride (Saline Flush) 10 ml FLUSH ASDIRECTED PRN PRN Reason: Keep Vein Open Last Admin: 01/21/18 22:34 Dose: 10 ml Zolpidem Tartrate (Ambien) 5 mg PO BEDTIME PRN PRN Reason: Sleep Last Admin: 01/20/18 23:31 Dose: 5 mg Discontinued Medications Ceftriaxone Sodium (Rocephin) 1,000 mg IVPUSH ONETIME ONE Stop: 01/20/18 22:31 Last Admin: 01/20/18 22:10 Dose: 1,000 mg Ceftriaxone Sodium (Rocephin) 1 gm IVPUSH Q24H [facility] Sodium Chloride (Normal Saline) 500 mls @ 250 mls/hr IV ASDIRECTED [facility] Stop: 01/21/18 00:46 Last Admin: 01/20/18 23:27 Dose: 250 mls/hr Methylprednisolone Sodium Succinate (Solu-Medrol) 125 mg IVPUSH ONETIME ONE Stop: 01/20/18 20:11 Last Admin: 01/20/18 20:25 Dose: 125 mg Potassium Chloride (Klor-Con 10) 40 meq PO ONETIME ONE Stop: 01/20/18 22:39 Last Admin: 01/20/18 23:28 Dose: 40 meq Promethazine HCl/Codeine (Phenergan With Codeine) 5 ml PO ONETIME ONE Stop: 01/20/18 20:11 Last Admin: 01/20/18 20:25 Dose: 5 ml - Exam General: Alert, Oriented Neck: Supple Lungs: Clear to Auscultation, Normal Respiratory Effort. No: Wheezing Cardiovascular: Regular Rate, Regular Rhythm GI/Abdominal Exam: Normal Bowel Sounds, Soft, Non-Tender Extremities: No Pedal Edema - Problem List & Annotations (1) Bronchitis SNOMED Code(s): 70465591 Code(s): J40 - BRONCHITIS, NOT SPECIFIED ACUTE OR CHRONIC Status: Acute Current Visit: No (2) Pneumonia SNOMED Code(s): 009869013 Code(s): J18.9 - PNEUMONIA, UNSPECIFIED ORGANISM Status: Acute Current Visit: No Qualifiers: Pneumonia type: due to unspecified organism Lung location: lower lobe of lung - Problem List Review Problem List Initiated/Reviewed/Updated: Yes - My Orders Last 24 Hours: My Active Orders 01/21/18 21:00 buPROPion [Wellbutrin XL] 300 mg PO BEDTIME 01/21/18 22:00 cefTRIAXone [Rocephin] 1 gm IVPUSH Q24H 01/22/18 17:00 Pantoprazole [ProTONIX] 40 mg PO BIDAC - Plan Plan:: The patient is a 67-year-old lady who presented with cough, shortness of breath. #1 community-acquired pneumonia Blood culture: pending sputum culture: pending Continue treatment with azithromycin, ceftriaxone #2 COPD use duoneb prn #3 History of smoking Cessation was discussed Continue to use nicotine patch #4 DVT prophylaxis will be with subcutaneous Lovenox
[2018-01-22] MEDS: Nicotine 14 MG/24 Hr Patch TRDERM SCH (10:41)
[2018-01-22] MEDS: Enoxaparin 40 MG/0.4 ML Syringe SUBCUT SCH (12:51)
[2018-01-22] MEDS: Pantoprazole 40 MG Tab.CR PO SCH (17:04)
[2018-01-22] MEDS: buPROPion 150 MG Tab.ER PO SCH (20:50)
[2018-01-22] MEDS: cefTRIAXone 1 GM Vial IVPUSH SCH (21:54)
[2018-01-22] MEDS: Albuterol 0.083% 2.5 MG/3 ML Neb Soln NEB PRN (21:59)
[2018-01-22] MEDS: Azithromycin 500 MG in Sodium Chloride 0.9% 250 ML IV SCH (22:53)
[2018-01-23] MEDS: Pantoprazole 40 MG Tab.CR PO SCH (06:12)
[2018-01-23] MEDS: guaiFENesin/Dextromethorphan 100-10 MG/5 ML Soln 5 ML Cup PO PRN (08:32)
[2018-01-23] MEDS: Celecoxib 100 MG Cap PO SCH (08:33)
[2018-01-23] MEDS: Acetaminophen 325 MG Tab PO PRN (08:33)
[2018-01-23] MEDS: Enoxaparin 40 MG/0.4 ML Syringe SUBCUT SCH ×2 (08:34→08:39)
[2018-01-23] MEDS: Nicotine 14 MG/24 Hr Patch TRDERM SCH (08:35)
--- NOTE | 2018-01-23 10:17 | PCM.DCSUM1 ---
Discharge Summary - Hospital Course Free Text/Narrative:: The patient is a 67-year-old lady who presented with cough, shortness of breath. She was noted to have right lower lobe infiltrate. #1 community-acquired pneumonia Blood culture: Negative for now sputum culture: Negative for now She was treated with azithromycin, ceftriaxone We'll discharge with levofloxacin #2 COPD use duoneb prn #3 History of smoking Cessation was discussed Diagnosis: Stroke: No - Discharge Data Discharge Date: 01/23/18 Discharge Disposition: Home, Self-Care 01 Condition: Good - Discharge Diagnosis/Problem(s) (1) Bronchitis SNOMED Code(s): 87015576 ICD Code: J40 - BRONCHITIS, NOT SPECIFIED ACUTE OR CHRONIC Status: Acute Current Visit: No (2) Pneumonia SNOMED Code(s): 178071558 ICD Code: J18.9 - PNEUMONIA, UNSPECIFIED ORGANISM Status: Acute Current Visit: No Qualifiers: Pneumonia type: due to unspecified organism Lung location: lower lobe of lung - Discharge Plan Prescriptions/Med Rec: Dextromethorphan/guaiFENesin [Robitussin DM] 10 ml PO Q6H PRN #200 ml PRN Reason: Cough Levofloxacin [Levaquin] 500 mg PO DAILY #7 tab Home Medications: Home Meds Celecoxib [CeleBREX] 200 mg PO DAILY 10/25/13 [History] buPROPion [Wellbutrin XL] 300 mg PO BEDTIME 10/25/13 [History] Dextromethorphan/guaiFENesin [Robitussin DM] 10 ml PO Q6H PRN #200 ml 01/23/18 [ Rx] Levofloxacin [Levaquin] 500 mg PO DAILY #7 tab 01/23/18 [Rx] Referrals: PCP,Unobtain [Ordering Only Provider] - (dr. Miranda - [facility]) - General Info Date of Service: 01/23/18 Admission Dx/Problem (Free Text: Admission Diagnosis/Problem Admission Diagnosis/Problem Pneumonia Subjective Update: Feeling better. Still coughing, no associated sputum production. Less shortness of breath. No chest pain. Getting up and moving around. No fever. - Review of Systems General: Denies: Fever, Weakness Pulmonary: Reports: Cough. Denies: Shortness of Breath, Sputum Cardiovascular: Denies: Chest Pain Gastrointestinal: Denies: Abdominal Pain Neurological: Denies: Confusion - Patient Data Vitals - Most Recent: Last Vital Signs Temp 36.2 C 01/23/18 07:10 Pulse 71 01/23/18 07:10 Resp 20 01/23/18 07:10 BP 94/60 01/23/18 07:10 Pulse Ox 96 01/23/18 07:10 Weight - Most Recent: 76.748 kg I&O - Last 24 hours: Intake & Output 01/22/18 01/23/18 01/23/18 22:59 06:59 14:59 Intake Total 740 252 Output Total 800 Balance -60 252 SONU Results - Last 24 hrs: Microbiology 01/20/18 20:15 Aerobic Blood Culture - Preliminary Blood NO GROWTH AFTER 2 DAYS Anaerobic Blood Culture - Preliminary NO GROWTH AFTER 2 DAYS 01/22/18 10:45 Gram Stain - Final Sputum - Expectorated Med Orders - Current: Current Medications Acetaminophen (Tylenol) 650 mg PO Q4H PRN PRN Reason: Pain (Mild 1-3)/fever Last Admin: 01/23/18 08:33 Dose: 650 mg Albuterol (Proventil Neb Soln) 2.5 mg NEB Q6HRRT PRN PRN Reason: sob Last Admin: 01/22/18 21:59 Dose: 2.5 mg Bupropion HCl (Wellbutrin Xl) 300 mg PO BEDTIME [facility] Last Admin: 01/22/18 20:50 Dose: 300 mg Ceftriaxone Sodium (Rocephin) 1 gm IVPUSH Q24H [facility] Last Admin: 01/22/18 21:54 Dose: 1 gm Celecoxib (Celebrex) 200 mg PO DAILY [facility] Last Admin: 01/23/18 08:33 Dose: 200 mg Docusate Sodium (Colace) 100 mg PO BID PRN PRN Reason: Constipation Enoxaparin Sodium (Lovenox) 40 mg SUBCUT DAILY [facility] Last Admin: 01/23/18 08:39 Dose: Not Given Guaifenesin/Phenylephrine HCl (Robitussin Dm) 10 ml PO Q6H PRN PRN Reason: Cough Last Admin: 01/23/18 08:32 Dose: 10 ml Azithromycin 500 mg/ Sodium (Chloride) 250 mls @ 250 mls/hr IV Q24H [facility] Last Infusion: 01/23/18 02:44 Dose: Infused Ibuprofen (Motrin) 400 mg PO Q6H PRN PRN Reason: Pain (mild 1-3) Last Admin: 01/20/18 23:30 Dose: 400 mg Nicotine (Habitrol) 14 mg TRDERM DAILY [facility] Last Admin: 01/23/18 08:35 Dose: Not Given Ondansetron HCl (Zofran Odt) 4 mg PO Q4H PRN PRN Reason: nausea, able to take PO Ondansetron HCl (Zofran) 4 mg IVPUSH Q6H PRN PRN Reason: Nausea/Vomiting Oxycodone HCl (Oxycodone) 5 mg PO Q4H PRN PRN Reason: Pain (moderate 4-6) Pantoprazole Sodium (Protonix) 40 mg PO BIDAC [facility] Last Admin: 01/23/18 06:12 Dose: 40 mg Sodium Chloride (Saline Flush) 10 ml FLUSH ASDIRECTED PRN PRN Reason: Keep Vein Open Last Admin: 01/21/18 22:34 Dose: 10 ml Zolpidem Tartrate (Ambien) 5 mg PO BEDTIME PRN PRN Reason: Sleep Last Admin: 01/20/18 23:31 Dose: 5 mg Discontinued Medications Ceftriaxone Sodium (Rocephin) 1,000 mg IVPUSH ONETIME ONE Stop: 01/20/18 22:31 Last Admin: 01/20/18 22:10 Dose: 1,000 mg Ceftriaxone Sodium (Rocephin) 1 gm IVPUSH Q24H [facility] Heparin Sodium (Porcine) (Heparin Sodium) 5,000 units SUBCUT Q8HR [facility] Last Admin: 01/22/18 06:30 Dose: 5,000 units Sodium Chloride (Normal Saline) 500 mls @ 250 mls/hr IV ASDIRECTED [facility] Stop: 01/21/18 00:46 Last Admin: 01/20/18 23:27 Dose: 250 mls/hr Methylprednisolone Sodium Succinate (Solu-Medrol) 125 mg IVPUSH ONETIME ONE Stop: 01/20/18 20:11 Last Admin: 01/20/18 20:25 Dose: 125 mg Potassium Chloride (Klor-Con 10) 40 meq PO ONETIME ONE Stop: 01/20/18 22:39 Last Admin: 01/20/18 23:28 Dose: 40 meq Promethazine HCl/Codeine (Phenergan With Codeine) 5 ml PO ONETIME ONE Stop: 01/20/18 20:11 Last Admin: 01/20/18 20:25 Dose: 5 ml - Exam Quality Assessment: Denies: Supplemental Oxygen General: Reports: Alert, Oriented Neck: Reports: Supple Lungs: Reports: Clear to Auscultation, Normal Respiratory Effort. Denies: Wheezing Cardiovascular: Reports: Regular Rate, Regular Rhythm GI/Abdominal Exam: Normal Bowel Sounds, Soft, Non-Tender Extremities: No Pedal Edema
== END 2018-01-23 11:30 | disposition home or self-care (01) | DRG 190 ==
LOC: DL.ED 20:07 → DL.MS 22:03
PROVIDERS: ADMIT Internal Medicine; ATTEND Internal Medicine
DX: J44.0 Chronic obstructive pulmonary disease with (acute) lower respiratory infection (principal); J18.9 Pneumonia, unspecified organism; E87.6 Hypokalemia; F32.9 Major depressive disorder, single episode, unspecified; R74.0 Nonspecific elevation of levels of transaminase and lactic acid dehydrogenase [LDH]; F17.210 Nicotine dependence, cigarettes, uncomplicated; Z79.899 Other long term (current) drug therapy; Z79.1 Long term (current) use of non-steroidal anti-inflammatories (NSAID)
CPT/HCPCS: 36415; 71046; 80053; 81001; 83605; 85025; 87040; 96374; 99283; 99285; A9270; J2930; 80048; 87070; 87205; 94640; 96375; J0456; J0696; J1644; J1650; J7040; J7050; J7620-GY

== ENCOUNTER 2019-06-15 18:03 | Inpatient (IN) | payer MEDICARE, OTHER ==
[2019-06-15] MEDS ORDERED: Sodium Chloride 0.9% 10 ML Syringe FLUSH PRN ×2 (18:21→21:25)
[2019-06-15] MEDS ORDERED: methylPREDNISolone Sodium Succinate 125 MG/2 ML SDV IVPUSH ONE (18:22)
[2019-06-15] MEDS ORDERED: Albuterol/Ipratropium 3.0-0.5 MG/3 ML Neb Soln NEB ONE (18:22)
[2019-06-15] MEDS ORDERED: Sodium Chloride 0.9% 1,000 ML IV ONE (18:22)
[2019-06-15] MEDS ORDERED: cefTRIAXone 2 GM in Sodium Chloride 0.9% 100 ML IV ONE (18:23)
[2019-06-15] MEDS ORDERED: Azithromycin 500 MG in Sodium Chloride 0.9% 250 ML IV ONE (18:23)
--- NOTE | 2019-06-15 18:30 | EDM.PDOC ---
<Shakira De La Rosa - Last Filed: 06/15/19 18:45> ED HPI GENERAL MEDICAL PROBLEM - General Chief Complaint: Respiratory Problem Stated Complaint: BREATHING ISSUES Time Seen by Provider: 06/15/19 18:25 Source of Information: Reports: Patient, Family, Old Records, RN, RN Notes Reviewed History Limitations: Reports: No Limitations - History of Present Illness INITIAL COMMENTS - FREE TEXT/NARRATIVE: Pt presents to ER with c/o progressively worsening shortness of breath with cough, wheezing, and subjective low grade fevers for last week. She was on an oral steroid and antibiotic last month for COPD exacerbation but she feels like she never got over the shortness of breath. Pt reports increased SOB, green sputum and sore throat. She has been using DuoNeb treatments, last one at 1300HRS today. She does not use supplemental oxygen at home. Denies any hemoptysis. 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 Pt is a snf tobacco smoker with Hx of COPD. 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 SPECIALIST: Reports: Breathing Treatments, Other Medication(s) - Related Data Allergies Allergy/AdvReac Type Severity Reaction Status Date / Time levofloxacin Allergy Hives Verified 06/15/19 18:22 Home Meds: Home Meds Cetirizine HCl [Zyrtec] 10 mg PO DAILY 06/08/18 [History] Albuterol Sulfate [Proair Hfa] 2 inh INH Q4HR PRN 07/09/18 [History] Fluticasone Propionate [Flonase] 2 spray NASBOTH DAILY 07/09/18 [History] Formoterol Fumarate [Perforomist] 2 ml INH BID 07/09/18 [History] Tiotropium [Spiriva HandiHaler] 1 cap INH DAILY 07/09/18 [History] Budesonide [Pulmicort] 2 ml INH BID 07/10/18 [History] Past Medical History HEENT History: Reports: Impaired Vision Respiratory History: Reports: Bronchitis, Recurrent, COPD Gastrointestinal History: Reports: Other (See Below) Other Gastrointestinal History: ulcer years ago- thinks 2005 [employer]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: Psychiatric History: Reports: Depression - Past Surgical History GI Surgical History: Reports: Appendectomy Social & Family History - Family History Family Medical History: Noncontributory - Tobacco Use Smoking Status *Q: Current Every Day Smoker Tobacco Use Within Last Twelve Months: Cigarettes - Caffeine Use Caffeine Use: Reports: Coffee, Soda, Tea - Alcohol Use Alcohol Use History: No - Recreational Drug Use Recreational Drug Use: No - Living Situation & Occupation Living situation: Reports: with Family Occupation: Retired ED ROS GENERAL - Review of Systems Review Of Systems: ROS reveals no pertinent complaints other than HPI. ED EXAM, GENERAL - Physical Exam Exam: See Below Exam Limited By: No Limitations General Appearance: Alert, WD/WN, No Apparent Distress, Other (Acutely ill but non-toxic appearing.) Eye Exam: Bilateral Eye: Normal Inspection Ears: Normal External Exam, Hearing Grossly Normal Nose: Normal Inspection, Normal Mucosa, No Blood Throat/Mouth: Normal Lips, Normal Voice, No Airway Compromise, Other (Small amt. of clear postnasal drip with steaks of pharyngeal erythema.) Head: Atraumatic, Normocephalic Neck: Normal Inspection, Supple, Non-Tender, Full Range of Motion Respiratory/Chest: No Respiratory Distress, No Accessory Muscle Use, Chest Non- Tender, Decreased Breath Sounds, Crackles, Wheezing. No: Rales, Rhonchi, Stridor Cardiovascular: Regular Rate, Rhythm, No Edema, Tachycardia GI/Abdominal: Normal Bowel Sounds, Soft, Non-Tender, No Organomegaly, No Distention, No Abnormal Bruit, No Mass Back Exam: Normal Inspection Extremities: Normal Inspection, Normal Range of Motion, Non-Tender, Normal Capillary Refill, No Pedal Edema Neurological: Alert, Oriented, CN II-XII Intact, Normal Cognition, No Motor/ Sensory Deficits Psychiatric: Normal Affect, Anxious Skin Exam: Warm, Dry, Intact, Normal Color, No Rash Course - Vital Signs Last Recorded V/S: Last Vital Signs Temp 98.4 F 06/15/19 18:48 Pulse 87 06/15/19 18:48 Resp 21 H 06/15/19 18:48 BP 122/62 06/15/19 18:48 Pulse Ox 100 06/15/19 18:48 - Orders/Labs/Meds Orders: Active Orders 24 hr Category Date Time Status Peripheral IV Care [RC] . DIRECTED Care 06/15/19 18:22 Active RT Aerosol Therapy [RC] ASDIRECTED Care 06/15/19 18:23 Active Chest 2V [CR] Stat Exams 06/15/19 18:22 Taken CULTURE BLOOD [BC] Stat Lab 06/15/19 18:32 Received CULTURE BLOOD [BC] Stat Lab 06/15/19 18:36 Received CULTURE STREP A CONFIRMATION [] Stat Lab 06/15/19 18:34 Results STREP SCRN A RAPID W CULT CONF [] Stat Lab 06/15/19 18:34 Results Sodium Chloride 0.9% [Saline Flush] Med 06/15/19 18:21 Active 10 ml FLUSH ASDIRECTED PRN Blood Culture x2 Reflex Set [OM.PC] Stat Oth 06/15/19 18:21 Ordered Peripheral IV Insertion Adult [OM.PC] Stat Oth 06/15/19 18:21 Ordered Medication Orders Sodium Chloride (Saline Flush) 10 ml FLUSH ASDIRECTED PRN PRN Reason: Keep Vein Open Last Admin: 06/15/19 18:30 Dose: 10 ml Labs: Laboratory Tests 06/15/19 06/15/19 06/15/19 Range/Units 18:32 18:36 18:36 WBC 12.1 H (5.0-10.0) 10^3/uL RBC 5.04 (4.2-5.4) 10^6/uL Hgb 13.6 (12.0-16.0) g/dL Hct 42.1 (37.0-47.0) % MCV 83.5 (80-100) fL MCH 27.0 (27.0-34.0) pg MCHC 32.3 L (33.0-35.0) g/dL Plt Count 310 (150-450) 10^3/uL Neut % (Auto) 67.3 (42.2-75.2) % Lymph % (Auto) 14.3 L (20.5-50.1) % Gove % (Auto) 6.3 (2-8) % Eos % (Auto) 11.9 H (1.0-3.0) % Baso % (Auto) 0.2 (0.0-1.0) % Sodium 140 (135-145) mmol/L Potassium 3.8 (3.6-5.0) mmol/L Chloride 108 (101-111) mmol/L Carbon Dioxide 24.0 (21.0-31.0) mmol/L Anion Gap 11.8 BUN 9 (7-18) mg/dL Creatinine 0.8 (0.6-1.3) mg/dL Est Cr Clr Drug Dosing 57.31 mL/min Estimated GFR (MDRD) > 60 BUN/Creatinine Ratio 11.25 Glucose 99 (74-105) mg/dL Lactic Acid 1.9 (0.5-2.2) mmol/L Calcium 9.1 (8.4-10.2) mg/dl Total Bilirubin 0.7 (0.2-1.0) mg/dL AST 16 (10-42) IU/L ALT 16 (10-60) IU/L Alkaline Phosphatase 108 (42-121) IU/L Total Protein 7.3 (6.7-8.2) g/dl Albumin 3.9 (3.2-5.5) g/dl Globulin 3.4 Albumin/Globulin Ratio 1.15 Meds: Medications Generic Name Dose Route Start Last Admin Trade Name Freq PRN Reason Stop Dose Admin Sodium Chloride 10 ml 06/15/19 18:21 06/15/19 18:30 Saline Flush FLUSH 10 ml ASDIRECTED PRN Administration Keep Vein Open Discontinued Medications Generic Name Dose Route Start Last Admin Trade Name Freq PRN Reason Stop Dose Admin Albuterol/Ipratropium 3 ml 06/15/19 18:22 06/15/19 18:41 Duoneb 3.0-0.5 Mg/3 Ml NEB 06/15/19 18:23 3 ml ONETIME ONE Administration Azithromycin 500 mg/ Sodium 250 mls @ 250 mls/hr 06/15/19 18:23 06/15/19 19: 11 Chloride IV 06/15/19 19:22 250 mls/hr ONETIME ONE Administration Ceftriaxone Sodium 2 gm/ 100 mls @ 200 mls/hr 06/15/19 18:23 06/15/19 18:39 Sodium Chloride IV 06/15/19 18:52 200 mls/hr ONETIME ONE Administration Sodium Chloride 1,000 mls @ 999 mls/hr 06/15/19 18:22 06/15/19 18:39 Normal Saline IV 06/15/19 19:22 999 mls/hr .BOLUS ONE Administration Methylprednisolone Sodium Succinate 125 mg 06/15/19 18:22 06/15/19 18:42 Solu-Medrol IVPUSH 06/15/19 18:23 125 mg ONETIME ONE Administration Departure - Departure Disposition: Admitted As Inpatient 66 Clinical Impression: COPD exacerbation - Discharge Information Forms: ED Department Discharge <Sasha Sorensen Tian - Last Filed: 06/15/19 19:31> Course - Radiology Interpretation Free Text/Narrative:: [facility] [place] [facility] Final Radiology Report Call: [phone] assistance Online chat: [email or web address] Name: CHERYL NICK Age: 69Years F Date: 06/15/2019 SSN: -- : [id number] Study: XR CHEST 2 VIEWS FRONTAL & LAT Requesting Physician: SHAKIRA DE LA ROSA Images: 2 Addl Studies: Provided Clinical History: Contrast: Contrast Medium: Contrast Amount: Contrast Method: CONFIDENTIALITY STATEMENT This report is intended only for use by the referring physician, and only in accordance with law. If you received this in error, call [phone]. Page 1 of 1 PROCEDURE INFORMATION: Exam: XR Chest, 2 Views Exam date and time: 06/15/2019 6:50 PM Clinical history: 69 years old, female; Cough and dyspnea and fever and wheezing TECHNIQUE: Imaging protocol: XR of the chest Views: 2 views. COMPARISON: CR Chest 2V 03/26/2019 8:17 PM FINDINGS: Lungs: The lungs are hyperinflated. There is diffuse mild prominence of interstitium. No focal consolidation. Pleural space: Unremarkable. No pleural effusion. No pneumothorax. Heart/Mediastinum: Unremarkable. No cardiomegaly. Bones/joints: Unremarkable. IMPRESSION: Findings suggestive of possible underlying COPD and/or chronic bronchitis Thank you for allowing us to participate in the care of your patient. Dictated and Authenticated by: Minor Vázquez MD 06/15/2019 7:23 PM Central Time ([place] & [place] - Re-Assessments/Exams Free Text/Narrative Re-Assessment/Exam: 06/15/19 19:29 Patient dyspneic with minimal exertion and conversation limited to 2-3 word responses. Bilateral inspiratory expiratory wheezing, greater Right. Dr Bolden accepting patient for acute admission. Departure - Departure Time of Disposition: 19:31 Condition: Good - Discharge Information *PRESCRIPTION DRUG MONITORING PROGRAM REVIEWED*: No *COPY OF PRESCRIPTION DRUG MONITORING REPORT IN PATIENT DAVE: No
[2019-06-15 19:02] LABS: ANION GAP 11.8; CHLORIDE,CL 108 mmol/L (101-111); SODIUM,NA 140 mmol/L (135-145)
[2019-06-15] MEDS ORDERED: Ondansetron 4 MG Tab.DIS PO PRN (21:25)
[2019-06-15] MEDS ORDERED: Zolpidem 5 MG Tab PO PRN (21:25)
[2019-06-15] MEDS ORDERED: Acetaminophen/HYDROcodone 325-10 MG Tab PO PRN (21:25)
--- NOTE | 2019-06-15 21:36 | PCM.HP ---
H&P History of Present Illness - General Date of Service: 06/15/19 Admit Problem/Dx: Admission Diagnosis/Problem Admission Diagnosis/Problem COPD, Severe chronic obstructive pulmonary disease Source of Information: Patient, Provider - History of Present Illness Initial Comments - Free Text/Narative: 69-year-old with a history of COPD. She presented with shortness of breath associated with wheezing. Symptoms started more than a week ago. Did not improve with the use of the oral antibiotic and increasing Nebulizers. There is associated tachycardia. She was noted to have hypoxemia with oxygen saturations of 86% on presentation to the emergency room. She reports low-grade fever, cough, minimal sputum. No chest pain, no abdominal pain. No leg swelling. - Related Data Allergies/Adverse Reactions: Allergies Allergy/AdvReac Type Severity Reaction Status Date / Time levofloxacin Allergy Hives Verified 06/15/19 18:22 Home Medications: Home Meds Cetirizine HCl [Zyrtec] 10 mg PO DAILY 06/08/18 [History] Albuterol Sulfate [Proair Hfa] 2 inh INH Q4HR PRN 07/09/18 [History] Fluticasone Propionate [Flonase] 2 spray NASBOTH DAILY 07/09/18 [History] Formoterol Fumarate [Perforomist] 2 ml INH BID 07/09/18 [History] Tiotropium [Spiriva HandiHaler] 1 cap INH DAILY 07/09/18 [History] Budesonide [Pulmicort] 2 ml INH BID 07/10/18 [History] Albuterol/Ipratropium [DuoNeb 3.0-0.5 MG/3 ML] 3 ml NEB QID 06/15/19 [History] Past Medical History HEENT History: Reports: Impaired Vision Cardiovascular History: Reports: SOB on Exertion Respiratory History: Reports: Asthma, Bronchitis, Recurrent, COPD Gastrointestinal History: Reports: Other (See Below) Other Gastrointestinal History: ulcer years ago- thinks 2005 [employer]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: Reports: Psychiatric History: Reports: Depression - Past Surgical History GI Surgical History: Reports: Appendectomy Social & Family History - Family History Family Medical History: Noncontributory - Tobacco Use Smoking Status *Q: Never Smoker Second Hand Smoke Exposure: No - Caffeine Use Caffeine Use: Reports: Coffee, Soda, Tea - Recreational Drug Use Recreational Drug Use: No - Living Situation & Occupation Living situation: Reports: with Family Occupation: Retired H&P Review of Systems - Review of Systems: Review Of Systems: See Below General: Reports: Fever (Low-grade, subjective) Pulmonary: Reports: Shortness of Breath, Wheezing, Cough, Sputum. Denies: Pleuritic Chest Pain, Hemoptysis (Minimal) Cardiovascular: Denies: Chest Pain, Edema Gastrointestinal: Denies: Abdominal Pain Genitourinary: Denies: Dysuria Psychiatric: Denies: Confusion Exam - Exam Exam: See Below - Vital Signs Vital Signs: Last Vital Signs Temp 36.3 C 06/15/19 20:39 Pulse 116 H 06/15/19 20:39 Resp 20 06/15/19 20:39 BP 123/85 06/15/19 20:54 Pulse Ox 93 L 06/15/19 20:39 Weight: 82.01 kg - Exam General: Alert, Oriented Neck: Supple Lungs: Wheezing Cardiovascular: Regular Rate, Tachycardia GI/Abdominal Exam: Normal Bowel Sounds, Soft, Non-Tender Extremities: No Pedal Edema Skin: Warm, Dry Neuro Extensive - Mental Status: Alert, Oriented x3 - Patient Data Lab Results Last 24 hrs: Laboratory Results - last 24 hr 06/15/19 06/15/19 06/15/19 Range/Units 18:32 18:36 18:36 WBC 12.1 H (5.0-10.0) 10^3/uL RBC 5.04 (4.2-5.4) 10^6/uL Hgb 13.6 (12.0-16.0) g/dL Hct 42.1 (37.0-47.0) % MCV 83.5 (80-100) fL MCH 27.0 (27.0-34.0) pg MCHC 32.3 L (33.0-35.0) g/dL Plt Count 310 (150-450) 10^3/uL Neut % (Auto) 67.3 (42.2-75.2) % Lymph % (Auto) 14.3 L (20.5-50.1) % Lee % (Auto) 6.3 (2-8) % Eos % (Auto) 11.9 H (1.0-3.0) % Baso % (Auto) 0.2 (0.0-1.0) % Sodium 140 (135-145) mmol/L Potassium 3.8 (3.6-5.0) mmol/L Chloride 108 (101-111) mmol/L Carbon Dioxide 24.0 (21.0-31.0) mmol/L Anion Gap 11.8 BUN 9 (7-18) mg/dL Creatinine 0.8 (0.6-1.3) mg/dL Est Cr Clr Drug Dosing 57.31 mL/min Estimated GFR (MDRD) > 60 BUN/Creatinine Ratio 11.25 Glucose 99 (74-105) mg/dL Lactic Acid 1.9 (0.5-2.2) mmol/L Calcium 9.1 (8.4-10.2) mg/dl Total Bilirubin 0.7 (0.2-1.0) mg/dL AST 16 (10-42) IU/L ALT 16 (10-60) IU/L Alkaline Phosphatase 108 (42-121) IU/L Total Protein 7.3 (6.7-8.2) g/dl Albumin 3.9 (3.2-5.5) g/dl Globulin 3.4 Albumin/Globulin Ratio 1.15 Result Diagrams: 06/15/19 18:36 06/15/19 18:36 Steven Results Last 24 hrs: Microbiology 06/15/19 18:34 Group A Streptococcus Rapid Screen - Final Throat NEGATIVE STREP A SCREEN REFERENCE RANGE: NEGATIVE - Problem List (1) Bronchitis SNOMED Code(s): 29791767 ICD Code: J40 - BRONCHITIS, NOT SPECIFIED ACUTE OR CHRONIC Status: Acute Current Visit: No (2) COPD exacerbation SNOMED Code(s): 013480650 ICD Code: J44.1 - CHRONIC OBSTRUCTIVE PULMONARY DISEASE W (ACUTE) EXACERBATION Status: Acute Current Visit: No Problem List Initiated/Reviewed/Updated: Yes Orders Last 24hrs: Active Orders 24 hr Category Date Time Status Admission Diagnosis [ADT] Routine ADT 06/15/19 19:30 Ordered Admission Status [Patient Status] [ADT] Routine ADT 06/15/19 19:30 Active Antiembolic Devices [RC] PER UNIT ROUTINE Care 06/15/19 21:26 Ordered Oxygen Therapy [RC] PRN Care 06/15/19 21:25 Ordered Peripheral IV Care [RC] . DIRECTED Care 06/15/19 18:22 Active RT Aerosol Therapy [RC] ASDIRECTED Care 06/15/19 18:23 Active RT Aerosol Therapy [RC] ASDIRECTED Care 06/15/19 21:22 Ordered Up With Assistance [RC] ASDIRECTED Care 06/15/19 21:25 Ordered VTE/DVT Education [RC] PER UNIT ROUTINE Care 06/15/19 21:25 Ordered Vital Signs [RC] Q4H Care 06/15/19 21:25 Ordered Regular Diet [DIET] Diet 06/15/19 Breakfast Ordered Chest 2V [CR] Stat Exams 06/15/19 18:22 Taken BASIC METABOLIC PANEL,BMP [CHEM] AM Lab 06/16/19 05:11 Ordered CBC W/O DIFF,HEMOGRAM [HEME] AM Lab 06/16/19 05:11 Ordered CULTURE BLOOD [BC] Stat Lab 06/15/19 18:32 Received CULTURE BLOOD [BC] Stat Lab 06/15/19 18:36 Received CULTURE SPUTUM + SMEAR [] Routine Lab 06/15/19 21:24 Ordered CULTURE STREP A CONFIRMATION [] Stat Lab 06/15/19 18:34 Results STREP SCRN A RAPID W CULT CONF [] Stat Lab 06/15/19 18:34 Results Acetaminophen [Tylenol] Med 06/15/19 21:25 Ordered 650 mg PO Q4H PRN Acetaminophen/HYDROcodone [[place] 325-10 MG] Med 06/15/19 21:25 Ordered 1 tab PO Q4H PRN Albuterol/Ipratropium [DuoNeb 3.0-0.5 MG/3 ML] Med 06/15/19 21:22 Ordered 3 ml NEB Q2H PRN Albuterol/Ipratropium [DuoNeb 3.0-0.5 MG/3 ML] Med 06/15/19 21:30 Ordered 3 ml NEB Q6H Azithromycin [Zithromax] 500 mg Med 06/16/19 20:00 Ordered Sodium Chloride 0.9% [Normal Saline] 250 ml IV Q24H Budesonide [Pulmicort] Med 06/16/19 09:00 Ordered 0.5 mg INH BID Heparin Sodium Med 06/15/19 22:00 Ordered 5,000 units SUBCUT Q8HR Ondansetron [Zofran ODT] Med 06/15/19 21:25 Ordered 4 mg PO Q4H PRN Sodium Chloride 0.9% [Saline Flush] Med 06/15/19 18:21 Active 10 ml FLUSH ASDIRECTED PRN Zolpidem [Ambien] Med 06/15/19 21:25 Ordered 5 mg PO BEDTIME PRN cefTRIAXone [Rocephin] 1 gm Med 06/16/19 20:00 Ordered Sodium Chloride 0.9% [Normal Saline] 50 ml IV Q24H methylPREDNISolone Sod Succ [Solu-MEDROL] Med 06/15/19 21:30 Ordered 40 mg IVPUSH Q8H Antiembolic Hose [OM.PC] Per Unit Routine Oth 06/15/19 21:25 Ordered Blood Culture x2 Reflex Set [OM.PC] Stat Oth 06/15/19 18:21 Ordered Peripheral IV Insertion Adult [OM.PC] Stat Oth 06/15/19 18:21 Ordered Saline Lock Insert [OM.PC] Routine Oth 06/15/19 21:25 Ordered Resuscitation Status Routine Resus Stat 06/15/19 21:25 Ordered Medication Orders Acetaminophen (Tylenol) 650 mg PO Q4H PRN PRN Reason: Pain (Mild 1-3)/fever Hydrocodone Bitart/Acetaminophen ([place] 325-10 Mg) 1 tab PO Q4H PRN PRN Reason: Pain (moderate 4-6) Albuterol/Ipratropium (Duoneb 3.0-0.5 Mg/3 Ml) 3 ml NEB Q6H JACKY Albuterol/Ipratropium (Duoneb 3.0-0.5 Mg/3 Ml) 3 ml NEB Q2H PRN PRN Reason: sob Budesonide (Pulmicort) 0.5 mg INH BID JACKY Heparin Sodium (Porcine) (Heparin Sodium) 5,000 units SUBCUT Q8HR [facility] Azithromycin 500 mg/ Sodium (Chloride) 250 mls @ 250 mls/hr IV Q24H [facility] Ceftriaxone Sodium 1 gm/ (Sodium Chloride) 50 mls @ 50 mls/hr IV Q24H JACKY Methylprednisolone Sodium Succinate (Solu-Medrol) 40 mg IVPUSH Q8H JACKY Ondansetron HCl (Zofran Odt) 4 mg PO Q4H PRN PRN Reason: nausea, able to take PO Sodium Chloride (Saline Flush) 10 ml FLUSH ASDIRECTED PRN PRN Reason: Keep Vein Open Last Admin: 06/15/19 18:30 Dose: 10 ml Zolpidem Tartrate (Ambien) 5 mg PO BEDTIME PRN PRN Reason: Sleep Assessment/Plan Comment:: 69-year-old with a history of COPD presented with increasing shortness of breath , wheezing. The patient failed outpatient therapy with oral antibiotics oral steroids and increasing nebulizers. Acute COPD exacerbation Treat with scheduled and when necessary DuoNeb Use Pulmicort IV Solu-Medrol Acute bronchitis Possible bacterial No apparent pneumonia on chest x-ray Obtain sputum culture Treat empirically with azithromycin and Rocephin Acute hypoxemic respiratory failure Oxygen saturation was 86% on presentation We'll supplement oxygen as needed DVT prophylaxis with subcutaneous heparin
[2019-06-15] MEDS: Heparin Sodium 5,000 Units/ML Vial SUBCUT SCH (22:21)
[2019-06-15] MEDS: Albuterol/Ipratropium 3.0-0.5 MG/3 ML Neb Soln NEB PRN (23:41)
[2019-06-15] MEDS: Acetaminophen 325 MG Tab PO PRN (23:50)
[2019-06-16] MEDS: Albuterol/Ipratropium 3.0-0.5 MG/3 ML Neb Soln NEB SCH ×4 (02:18→17:47)
[2019-06-16] MEDS: methylPREDNISolone Sodium Succinate 40 MG/1 ML SDV IVPUSH SCH ×3 (02:18→17:48)
[2019-06-16] MEDS: Heparin Sodium 5,000 Units/ML Vial SUBCUT SCH ×3 (05:50→21:27)
[2019-06-16 06:52] LABS: ANION GAP 12.6; CHLORIDE,CL 109 mmol/L (101-111); SODIUM,NA 141 mmol/L (135-145)
[2019-06-16] MEDS: Budesonide 0.5 MG/2 ML Neb Susp INH SCH ×2 (07:25→17:48)
[2019-06-16] MEDS: Acetaminophen 325 MG Tab PO PRN (09:58)
[2019-06-16] MEDS: Sodium Chloride 0.9% 10 ML Syringe FLUSH PRN ×2 (10:01→17:48)
--- NOTE | 2019-06-16 10:36 | PCM.PN ---
- General Info Date of Service: 06/16/19 Subjective Update: Feeling better. Not requiring oxygen. Shortness of breath is mild to moderate, improved since admission. No associated chest pain. No associated fever. Ambulatory in the room. Functional Status: Reports: Pain Controlled, Tolerating Diet - Review of Systems General: Denies: Fever Pulmonary: Reports: Shortness of Breath Cardiovascular: Denies: Chest Pain (Improved) Genitourinary: Denies: Dysuria Psychiatric: Denies: Confusion - Patient Data Vitals - Most Recent: Last Vital Signs Temp 36.4 C 06/16/19 07:55 Pulse 68 06/16/19 07:55 Resp 20 06/16/19 07:55 BP 111/54 L 06/16/19 07:55 Pulse Ox 99 06/16/19 07:55 Weight - Most Recent: 82.01 kg I&O - Last 24 Hours: Intake & Output 06/15/19 06/16/19 06/16/19 22:59 06:59 14:59 Intake Total 200 Output Total 200 Balance 0 Lab Results Last 24 Hours: Laboratory Results - last 24 hr 06/15/19 06/15/19 06/15/19 Range/Units 18:32 18:36 18:36 WBC 12.1 H (5.0-10.0) 10^3/uL RBC 5.04 (4.2-5.4) 10^6/uL Hgb 13.6 (12.0-16.0) g/dL Hct 42.1 (37.0-47.0) % MCV 83.5 (80-100) fL MCH 27.0 (27.0-34.0) pg MCHC 32.3 L (33.0-35.0) g/dL Plt Count 310 (150-450) 10^3/uL Neut % (Auto) 67.3 (42.2-75.2) % Lymph % (Auto) 14.3 L (20.5-50.1) % [place] % (Auto) 6.3 (2-8) % Eos % (Auto) 11.9 H (1.0-3.0) % Baso % (Auto) 0.2 (0.0-1.0) % Sodium 140 (135-145) mmol/L Potassium 3.8 (3.6-5.0) mmol/L Chloride 108 (101-111) mmol/L Carbon Dioxide 24.0 (21.0-31.0) mmol/L Anion Gap 11.8 BUN 9 (7-18) mg/dL Creatinine 0.8 (0.6-1.3) mg/dL Est Cr Clr Drug Dosing 57.31 mL/min Estimated GFR (MDRD) > 60 BUN/Creatinine Ratio 11.25 Glucose 99 (74-105) mg/dL Lactic Acid 1.9 (0.5-2.2) mmol/L Calcium 9.1 (8.4-10.2) mg/dl Total Bilirubin 0.7 (0.2-1.0) mg/dL AST 16 (10-42) IU/L ALT 16 (10-60) IU/L Alkaline Phosphatase 108 (42-121) IU/L Total Protein 7.3 (6.7-8.2) g/dl Albumin 3.9 (3.2-5.5) g/dl Globulin 3.4 Albumin/Globulin Ratio 1.15 06/16/19 06/16/19 Range/Units 05:45 05:45 WBC 6.3 (5.0-10.0) 10^3/uL RBC 4.47 (4.2-5.4) 10^6/uL Hgb 11.9 L D (12.0-16.0) g/dL Hct 38.3 (37.0-47.0) % MCV 85.7 (80-100) fL MCH 26.6 L (27.0-34.0) pg MCHC 31.1 L (33.0-35.0) g/dL Plt Count 237 (150-450) 10^3/uL Neut % (Auto) (42.2-75.2) % Lymph % (Auto) (20.5-50.1) % [place] % (Auto) (2-8) % Eos % (Auto) (1.0-3.0) % Baso % (Auto) (0.0-1.0) % Sodium 141 (135-145) mmol/L Potassium 4.6 (3.6-5.0) mmol/L Chloride 109 (101-111) mmol/L Carbon Dioxide 24.0 (21.0-31.0) mmol/L Anion Gap 12.6 BUN 10 (7-18) mg/dL Creatinine 0.8 (0.6-1.3) mg/dL Est Cr Clr Drug Dosing 57.31 mL/min Estimated GFR (MDRD) > 60 BUN/Creatinine Ratio Glucose 151 H (74-105) mg/dL Lactic Acid (0.5-2.2) mmol/L Calcium 9.0 (8.4-10.2) mg/dl Total Bilirubin (0.2-1.0) mg/dL AST (10-42) IU/L ALT (10-60) IU/L Alkaline Phosphatase (42-121) IU/L Total Protein (6.7-8.2) g/dl Albumin (3.2-5.5) g/dl Globulin Albumin/Globulin Ratio Steven Results Last 24 Hours: Microbiology 06/15/19 18:34 Quick Strep Confirmation Culture - Final Throat NO GROUP A STREP ISOLATED REFERENCE RANGE: NEGATIVE Group A Streptococcus Rapid Screen - Final NEGATIVE STREP A SCREEN REFERENCE RANGE: NEGATIVE Med Orders - Current: Current Medications Acetaminophen (Tylenol) 650 mg PO Q4H PRN PRN Reason: Pain (Mild 1-3)/fever Last Admin: 06/16/19 09:58 Dose: 650 mg Hydrocodone Bitart/Acetaminophen ([place] 325-10 Mg) 1 tab PO Q4H PRN PRN Reason: Pain (moderate 4-6) Albuterol/Ipratropium (Duoneb 3.0-0.5 Mg/3 Ml) 3 ml NEB Q6HRRT [facility] Last Admin: 06/16/19 07:25 Dose: 3 ml Albuterol/Ipratropium (Duoneb 3.0-0.5 Mg/3 Ml) 3 ml NEB Q2H PRN PRN Reason: sob Last Admin: 06/15/19 23:41 Dose: 3 ml Budesonide (Pulmicort) 0.5 mg INH BIDRT [facility] Last Admin: 06/16/19 07:25 Dose: 0.5 mg Heparin Sodium (Porcine) (Heparin Sodium) 5,000 units SUBCUT Q8HR [facility] Last Admin: 06/16/19 05:50 Dose: Not Given Azithromycin 500 mg/ Sodium (Chloride) 250 mls @ 250 mls/hr IV Q24H [facility] Ceftriaxone Sodium 1 gm/ (Sodium Chloride) 50 mls @ 50 mls/hr IV Q24H [facility] Insulin Human Lispro (Humalog) 0 unit SUBCUT ACBED [facility]; Protocol Methylprednisolone Sodium Succinate (Solu-Medrol) 40 mg IVPUSH Q8H [facility] Last Admin: 06/16/19 10:01 Dose: 40 mg Ondansetron HCl (Zofran Odt) 4 mg PO Q4H PRN PRN Reason: nausea, able to take PO Sodium Chloride (Saline Flush) 10 ml FLUSH ASDIRECTED PRN PRN Reason: Keep Vein Open Last Admin: 06/16/19 10:01 Dose: 10 ml Zolpidem Tartrate (Ambien) 5 mg PO BEDTIME PRN PRN Reason: Sleep Discontinued Medications Albuterol/Ipratropium (Duoneb 3.0-0.5 Mg/3 Ml) 3 ml NEB ONETIME ONE Stop: 06/15/19 18:23 Last Admin: 06/15/19 18:41 Dose: 3 ml Azithromycin 500 mg/ Sodium (Chloride) 250 mls @ 250 mls/hr IV ONETIME ONE Stop: 06/15/19 19:22 Last Admin: 06/15/19 19:11 Dose: 250 mls/hr Ceftriaxone Sodium 2 gm/ (Sodium Chloride) 100 mls @ 200 mls/hr IV ONETIME ONE Stop: 06/15/19 18:52 Last Admin: 06/15/19 18:39 Dose: 200 mls/hr Sodium Chloride (Normal Saline) 1,000 mls @ 999 mls/hr IV .BOLUS ONE Stop: 06/15/19 19:22 Last Admin: 06/15/19 18:39 Dose: 999 mls/hr Methylprednisolone Sodium Succinate (Solu-Medrol) 125 mg IVPUSH ONETIME ONE Stop: 06/15/19 18:23 Last Admin: 06/15/19 18:42 Dose: 125 mg Sodium Chloride (Saline Flush) 10 ml FLUSH ASDIRECTED PRN PRN Reason: Keep Vein Open Last Admin: 06/15/19 18:30 Dose: 10 ml Sodium Chloride (Saline Flush) 10 ml FLUSH ASDIRECTED PRN PRN Reason: Keep Vein Open - Exam General: Alert, Oriented Neck: Supple Lungs: Normal Respiratory Effort, Decreased Breath Sounds. No: Wheezing Cardiovascular: Regular Rate, Regular Rhythm GI/Abdominal Exam: Normal Bowel Sounds, Soft, Non-Tender Extremities: No Pedal Edema Neurological: No New Focal Deficit Psy/Mental Status: Alert, Normal Affect, Normal Mood - Problem List & Annotations (1) Bronchitis SNOMED Code(s): 06983793 Code(s): J40 - BRONCHITIS, NOT SPECIFIED ACUTE OR CHRONIC Status: Acute Current Visit: No (2) COPD exacerbation SNOMED Code(s): 369171586 Code(s): J44.1 - CHRONIC OBSTRUCTIVE PULMONARY DISEASE W (ACUTE) EXACERBATION Status: Acute Current Visit: No - Problem List Review Problem List Initiated/Reviewed/Updated: Yes - My Orders Last 24 Hours: My Active Orders 06/15/19 21:22 RT Aerosol Therapy [RC] ASDIRECTED Albuterol/Ipratropium [DuoNeb 3.0-0.5 MG/3 ML] 3 ml NEB Q2H PRN 06/15/19 21:25 Oxygen Therapy [RC] .PRN Up With Assistance [RC] ASDIRECTED VTE/DVT Education [RC] PER UNIT ROUTINE Vital Signs [RC] 00,04,08,12,16,20 Acetaminophen [Tylenol] 650 mg PO Q4H PRN Acetaminophen/HYDROcodone [[place] 325-10 MG] 1 tab PO Q4H PRN Ondansetron [Zofran ODT] 4 mg PO Q4H PRN Zolpidem [Ambien] 5 mg PO BEDTIME PRN Antiembolic Hose [OM.PC] Per Unit Routine Saline Lock Insert [OM.PC] Routine Resuscitation Status Routine 06/15/19 21:26 Antiembolic Devices [RC] PER UNIT ROUTINE 06/15/19 22:00 Heparin Sodium 5,000 units SUBCUT Q8HR 06/16/19 01:00 Albuterol/Ipratropium [DuoNeb 3.0-0.5 MG/3 ML] 3 ml NEB Q6HRRT 06/16/19 02:00 methylPREDNISolone Sod Succ [Solu-MEDROL] 40 mg IVPUSH Q8H 06/16/19 07:00 Budesonide [Pulmicort] 0.5 mg INH BIDRT 06/16/19 09:10 Sodium Chloride 0.9% [Saline Flush] 10 ml FLUSH ASDIRECTED PRN 06/16/19 10:33 Glucose [Blood Glucose Check, Bedside] [RC] QIDACANDBED 06/16/19 11:00 Insulin Lispro [HumaLOG] See Protocol SUBCUT ACBED 06/16/19 20:00 Azithromycin [Zithromax] 500 mg Sodium Chloride 0.9% [Normal Saline] 250 ml IV Q24H cefTRIAXone [Rocephin] 1 gm Sodium Chloride 0.9% [Normal Saline] 50 ml IV Q24H - Plan Plan:: 69-year-old with a history of COPD presented with increasing shortness of breath , wheezing. The patient failed outpatient therapy with oral antibiotics oral steroids and increasing nebulizers. Acute COPD exacerbation appears improving Treat with scheduled and when necessary DuoNeb Use Pulmicort IV Solu-Medrol Acute bronchitis Possible bacterial No apparent pneumonia on chest x-ray sputum culture: pending Treat empirically with azithromycin and Rocephin Acute hypoxemic respiratory failure Oxygen saturation was 86% on presentation seems improved We'll supplement oxygen as needed hyperglycemia noted on steroids will follow BS DVT prophylaxis with subcutaneous heparin
[2019-06-16] MEDS ORDERED: Benzocaine/Cetylpyridinium/Menthol Lozenge MUCMEM PRN (11:01)
[2019-06-16] MEDS: Insulin Lispro 100 Units/ML 3 ML Vial SUBCUT SCH ×4 (12:50→20:57)
[2019-06-16] MEDS: cefTRIAXone 1 GM in Sodium Chloride 0.9% 50 ML IV SCH (19:24)
[2019-06-16] MEDS: Azithromycin 500 MG in Sodium Chloride 0.9% 250 ML IV SCH (20:41)
[2019-06-16] MEDS: Albuterol/Ipratropium 3.0-0.5 MG/3 ML Neb Soln NEB PRN (21:25)
[2019-06-17] MEDS: Albuterol/Ipratropium 3.0-0.5 MG/3 ML Neb Soln NEB SCH ×4 (01:28→18:01)
[2019-06-17] MEDS: methylPREDNISolone Sodium Succinate 40 MG/1 ML SDV IVPUSH SCH ×4 (01:29→20:16)
[2019-06-17] MEDS ORDERED: guaiFENesin 100 MG/5 ML Soln 5 ML UD Cup PO PRN (02:27)
[2019-06-17] MEDS: Heparin Sodium 5,000 Units/ML Vial SUBCUT SCH ×3 (05:34→21:39)
[2019-06-17] MEDS: Budesonide 0.5 MG/2 ML Neb Susp INH SCH ×2 (07:39→18:01)
[2019-06-17] MEDS: Insulin Lispro 100 Units/ML 3 ML Vial SUBCUT SCH ×4 (08:02→21:36)
[2019-06-17] MEDS: Sodium Chloride 0.9% 10 ML Syringe FLUSH PRN ×3 (10:03→20:16)
--- NOTE | 2019-06-17 10:43 | PCM.PN ---
- General Info Date of Service: 06/17/19 Admission Dx/Problem (Free Text): Admission Diagnosis/Problem Admission Diagnosis/Problem COPD, Severe chronic obstructive pulmonary disease Subjective Update: Feeling better but still has cough and sob with activity. Not requiring oxygen. Shortness of breath is mild to moderate, improved since admission. No associated chest pain. No associated fever. Ambulatory in the room. cough is non productive, Functional Status: Reports: Tolerating Diet - Review of Systems General: Reports: Weakness. Denies: Fever Pulmonary: Reports: Shortness of Breath Cardiovascular: Denies: Chest Pain, Edema Genitourinary: Denies: Dysuria Neurological: Denies: Confusion Psychiatric: Denies: Depression - Patient Data Vitals - Most Recent: Last Vital Signs Temp 36.7 C 06/17/19 08:00 Pulse 78 06/17/19 08:00 Resp 20 06/17/19 08:00 BP 109/57 L 06/17/19 08:00 Pulse Ox 96 06/17/19 08:00 Weight - Most Recent: 82.01 kg I&O - Last 24 Hours: Intake & Output 06/16/19 06/17/19 06/17/19 22:59 06:59 14:59 Intake Total 887 440 Balance 887 440 Lab Results Last 24 Hours: Laboratory Results - last 24 hr 06/16/19 06/16/19 06/16/19 Range/Units 11:23 16:49 20:54 POC Glucose 150 H 130 H 139 H (70-105) mg/dl 06/17/19 Range/Units 07:44 POC Glucose 128 H (70-105) mg/dl Steven Results Last 24 Hours: Microbiology 06/16/19 07:35 Gram Stain - Final Sputum - Expectorated Sputum Culture - Preliminary YEAST 06/15/19 18:32 Aerobic Blood Culture - Preliminary Blood - Venous NO GROWTH AFTER 1 DAY Anaerobic Blood Culture - Preliminary NO GROWTH AFTER 1 DAY 06/15/19 18:36 Aerobic Blood Culture - Preliminary Blood - Venous - Lab Draw NO GROWTH AFTER 1 DAY Anaerobic Blood Culture - Preliminary NO GROWTH AFTER 1 DAY 06/15/19 18:34 Quick Strep Confirmation Culture - Final Throat NO GROUP A STREP ISOLATED REFERENCE RANGE: NEGATIVE Group A Streptococcus Rapid Screen - Final NEGATIVE STREP A SCREEN REFERENCE RANGE: NEGATIVE Med Orders - Current: Current Medications Acetaminophen (Tylenol) 650 mg PO Q4H PRN PRN Reason: Pain (Mild 1-3)/fever Last Admin: 06/16/19 09:58 Dose: 650 mg Hydrocodone Bitart/Acetaminophen ([place] 325-10 Mg) 1 tab PO Q4H PRN PRN Reason: Pain (moderate 4-6) Albuterol/Ipratropium (Duoneb 3.0-0.5 Mg/3 Ml) 3 ml NEB Q6HRRT [facility] Last Admin: 06/17/19 07:39 Dose: 3 ml Albuterol/Ipratropium (Duoneb 3.0-0.5 Mg/3 Ml) 3 ml NEB Q2H PRN PRN Reason: sob Last Admin: 06/16/19 21:25 Dose: 3 ml Benzocaine/Menthol (Cepacol Sore Throat) 1 lozenge MUCMEM Q6H PRN PRN Reason: Sore Throat Budesonide (Pulmicort) 0.5 mg INH BIDRT [facility] Last Admin: 06/17/19 07:39 Dose: 0.5 mg Heparin Sodium (Porcine) (Heparin Sodium) 5,000 units SUBCUT Q8HR [facility] Last Admin: 06/17/19 05:34 Dose: 5,000 units Azithromycin 500 mg/ Sodium (Chloride) 250 mls @ 250 mls/hr IV Q24H [facility] Last Admin: 06/16/19 20:41 Dose: 250 mls/hr Ceftriaxone Sodium 1 gm/ (Sodium Chloride) 50 mls @ 50 mls/hr IV Q24H [facility] Last Admin: 06/16/19 19:24 Dose: 50 mls/hr Influenza Virus Vaccine (Fluad [id number] Syringe) 45 mcg IM .ONCE ONE Stop: 06/16/19 12:46 Insulin Human Lispro (Humalog) 0 unit SUBCUT 0700,1100,1700,2100 [facility]; Protocol Last Admin: 06/17/19 08:02 Dose: Not Given Methylprednisolone Sodium Succinate (Solu-Medrol) 40 mg IVPUSH Q8H [facility] Last Admin: 06/17/19 10:03 Dose: 40 mg Ondansetron HCl (Zofran Odt) 4 mg PO Q4H PRN PRN Reason: nausea, able to take PO Pneumococcal Polyvalent Vaccine (Pneumovax 23) 0.5 ml IM .ONCE ONE Stop: 06/16/19 12:05 Sodium Chloride (Saline Flush) 10 ml FLUSH ASDIRECTED PRN PRN Reason: Keep Vein Open Last Admin: 06/17/19 10:03 Dose: 10 ml Zolpidem Tartrate (Ambien) 5 mg PO BEDTIME PRN PRN Reason: Sleep Last Admin: 06/17/19 01:30 Dose: 5 mg Discontinued Medications Albuterol/Ipratropium (Duoneb 3.0-0.5 Mg/3 Ml) 3 ml NEB ONETIME ONE Stop: 06/15/19 18:23 Last Admin: 06/15/19 18:41 Dose: 3 ml Guaifenesin (Robitussin) 200 mg PO Q6H PRN PRN Reason: COUGH Last Admin: 06/17/19 02:32 Dose: 200 mg Azithromycin 500 mg/ Sodium (Chloride) 250 mls @ 250 mls/hr IV ONETIME ONE Stop: 06/15/19 19:22 Last Admin: 06/15/19 19:11 Dose: 250 mls/hr Ceftriaxone Sodium 2 gm/ (Sodium Chloride) 100 mls @ 200 mls/hr IV ONETIME ONE Stop: 06/15/19 18:52 Last Admin: 06/15/19 18:39 Dose: 200 mls/hr Sodium Chloride (Normal Saline) 1,000 mls @ 999 mls/hr IV .BOLUS ONE Stop: 06/15/19 19:22 Last Admin: 06/15/19 18:39 Dose: 999 mls/hr Insulin Human Lispro (Humalog) 0 unit SUBCUT ACBED [facility]; Protocol Last Admin: 06/16/19 18:02 Dose: Not Given Methylprednisolone Sodium Succinate (Solu-Medrol) 125 mg IVPUSH ONETIME ONE Stop: 06/15/19 18:23 Last Admin: 06/15/19 18:42 Dose: 125 mg Sodium Chloride (Saline Flush) 10 ml FLUSH ASDIRECTED PRN PRN Reason: Keep Vein Open Last Admin: 06/15/19 18:30 Dose: 10 ml Sodium Chloride (Saline Flush) 10 ml FLUSH ASDIRECTED PRN PRN Reason: Keep Vein Open - Exam Quality Assessment: No: Supplemental Oxygen General: Alert, Oriented Neck: Supple Lungs: Normal Respiratory Effort, Decreased Breath Sounds. No: Rhonchi, Wheezing Cardiovascular: Regular Rate, Regular Rhythm GI/Abdominal Exam: Normal Bowel Sounds, Soft, Non-Tender Extremities: No Pedal Edema - Problem List & Annotations (1) Bronchitis SNOMED Code(s): 42725430 Code(s): J40 - BRONCHITIS, NOT SPECIFIED ACUTE OR CHRONIC Status: Acute Current Visit: No (2) COPD exacerbation SNOMED Code(s): 360104518 Code(s): J44.1 - CHRONIC OBSTRUCTIVE PULMONARY DISEASE W (ACUTE) EXACERBATION Status: Acute Current Visit: No - Problem List Review Problem List Initiated/Reviewed/Updated: Yes - My Orders Last 24 Hours: My Active Orders 06/16/19 10:33 Glucose [Blood Glucose Check, Bedside] [RC] QIDACANDBED 06/16/19 11:01 Benzocaine/Cetylpyrd/Menthol [Cepacol Sore Throat] 1 lozenge MUCMEM Q6H PRN 06/16/19 12:04 Pneumococcal Polyvalent-23 Vac [Pneumovax 23] 0.5 ml IM .ONCE ONE 06/16/19 12:05 Influenza Vaccine Charge [RC] .DISCHARGE 06/16/19 12:45 FLU Vacc [id number])/[id number]/PF [Fluad [id number] Syringe] 45 mcg IM .ONCE ONE 06/16/19 17:00 Insulin Lispro [HumaLOG] 0 unit SUBCUT 0700,1100,1700,2100 06/16/19 20:00 Azithromycin [Zithromax] 500 mg Sodium Chloride 0.9% [Normal Saline] 250 ml IV Q24H cefTRIAXone [Rocephin] 1 gm Sodium Chloride 0.9% [Normal Saline] 50 ml IV Q24H 06/17/19 11:00 Dextromethorphan/guaiFENesin [Robitussin DM] 10 ml PO TID 06/18/19 05:15 BASIC METABOLIC PANEL,BMP [CHEM] AM CBC WITH AUTO DIFF [HEME] AM - Plan Plan:: 69-year-old with a history of COPD presented with increasing shortness of breath , wheezing. The patient failed outpatient therapy with oral antibiotics oral steroids and increasing nebulizers. Acute COPD exacerbation appears improving Treat with scheduled and when necessary DuoNeb Use Pulmicort taper IV Solu-Medrol Acute bronchitis Possible bacterial No apparent pneumonia on chest x-ray sputum culture: pending, yeast seen Treat empirically with azithromycin and Rocephin add scheduled robitussin DM Acute hypoxemic respiratory failure Oxygen saturation was 86% on presentation seems improved We'll supplement oxygen as needed hyperglycemia noted BSs 120-150 taper steroids will need to follow BS as out pt periodically DVT prophylaxis with subcutaneous heparin
[2019-06-17] MEDS: guaiFENesin/Dextromethorphan 100-10 MG/5 ML Soln 5 ML Cup PO SCH ×3 (12:37→20:22)
[2019-06-17] MEDS: cefTRIAXone 1 GM in Sodium Chloride 0.9% 50 ML IV SCH (19:26)
[2019-06-17] MEDS: Acetaminophen 325 MG Tab PO PRN (19:35)
[2019-06-17] MEDS: Azithromycin 500 MG in Sodium Chloride 0.9% 250 ML IV SCH (20:17)
[2019-06-18] MEDS: Albuterol/Ipratropium 3.0-0.5 MG/3 ML Neb Soln NEB SCH ×2 (00:13→07:28)
[2019-06-18] MEDS: Heparin Sodium 5,000 Units/ML Vial SUBCUT SCH (05:59)
[2019-06-18 06:46] LABS: ANION GAP 12.2; CHLORIDE,CL 108 mmol/L (101-111); SODIUM,NA 141 mmol/L (135-145)
[2019-06-18] MEDS: Budesonide 0.5 MG/2 ML Neb Susp INH SCH (07:28)
[2019-06-18] MEDS: Insulin Lispro 100 Units/ML 3 ML Vial SUBCUT SCH ×2 (08:01→12:23)
[2019-06-18] MEDS: guaiFENesin/Dextromethorphan 100-10 MG/5 ML Soln 5 ML Cup PO SCH (09:39)
[2019-06-18] MEDS: methylPREDNISolone Sodium Succinate 40 MG/1 ML SDV IVPUSH SCH (09:41)
[2019-06-18] MEDS: Sodium Chloride 0.9% 10 ML Syringe FLUSH PRN (09:41)
[2019-06-18] MEDS ORDERED: Pneumococcal Polyvalent-23 Vaccine 0.5 ML SDV IM ONE (11:00)
--- NOTE | 2019-06-18 11:32 | PCM.DCSUM1 ---
Discharge Summary - Hospital Course Free Text/Narrative:: Patient is a 67 y.o. female with medical history significant for COPD who was admitted for COPD exacerbation. She was started on steroids and antibiotics. Respiratory status improved. She was discharged home to continue antibiotics with Vantin and Azithromycin and also to continue prednisone. She was educated on the importance of smoking cessation. She is to follow up with her PCP. HPI Initial Comments: 69-year-old with a history of COPD. She presented with shortness of breath associated with wheezing. Symptoms started more than a week ago. Did not improve with the use of the oral antibiotic and increasing Nebulizers. There is associated tachycardia. She was noted to have hypoxemia with oxygen saturations of 86% on presentation to the emergency room. She reports low-grade fever, cough, minimal sputum. No chest pain, no abdominal pain. No leg swelling. Diagnosis: Stroke: No - Discharge Data Discharge Date: 06/18/19 Discharge Disposition: Home, Self-Care 01 Condition: Fair - Referral to Home Health Primary Care Physician: PCP None - Discharge Plan *PRESCRIPTION DRUG MONITORING PROGRAM REVIEWED*: No *COPY OF PRESCRIPTION DRUG MONITORING REPORT IN PATIENT DAVE: No Prescriptions/Med Rec: Azithromycin 500 mg PO DAILY #3 tablet Cefpodoxime [Vantin] 200 mg PO BID #6 tab Dextromethorphan/guaiFENesin [Robitussin DM] 10 ml PO TID #150 ml predniSONE [Prednisone] 40 mg PO DAILY #3 tablet Home Medications: Home Meds Cetirizine HCl [Zyrtec] 10 mg PO DAILY 06/08/18 [History] Albuterol Sulfate [Proair Hfa] 2 inh INH Q4HR PRN 07/09/18 [History] Fluticasone Propionate [Flonase] 2 spray NASBOTH DAILY 07/09/18 [History] Formoterol Fumarate [Perforomist] 2 ml INH BID 07/09/18 [History] Tiotropium [Spiriva HandiHaler] 1 cap INH DAILY 07/09/18 [History] Budesonide [Pulmicort] 2 ml INH BID 07/10/18 [History] Albuterol/Ipratropium [DuoNeb 3.0-0.5 MG/3 ML] 3 ml NEB QID 06/15/19 [History] Azithromycin 500 mg PO DAILY #3 tablet 06/18/19 [Rx] Cefpodoxime [Vantin] 200 mg PO BID #6 tab 06/18/19 [Rx] Dextromethorphan/guaiFENesin [Robitussin DM] 10 ml PO TID #150 ml 06/18/19 [Rx] predniSONE [Prednisone] 40 mg PO DAILY #3 tablet 06/18/19 [Rx] Patient Handouts: Chronic Obstructive Pulmonary Disease Exacerbation, Easy-to- Read, Steps to Quit Smoking, [id number], Dextromethorphan; Guaifenesin oral solution, Chronic Obstructive Pulmonary Disease, [id number], Cefpodoxime tablets, Azithromycin tablets Referrals: PCP,None [Primary Care Provider] - - Discharge Summary/Plan Comment DC Time >30 min.: Yes - General Info Date of Service: 06/18/19 Admission Dx/Problem (Free Text: Admission Diagnosis/Problem Admission Diagnosis/Problem COPD, Severe chronic obstructive pulmonary disease Subjective Update: Feeling better but still has cough and sob with activity. Not requiring oxygen. Shortness of breath is mild to moderate, improved since admission. No associated chest pain. No associated fever. Ambulatory in the room. cough is non productive, - Review of Systems General: Reports: No Symptoms HEENT: Reports: No Symptoms Pulmonary: Reports: Cough Cardiovascular: Reports: No Symptoms Gastrointestinal: Reports: No Symptoms Genitourinary: Reports: No Symptoms Musculoskeletal: Reports: No Symptoms Skin: Reports: No Symptoms Neurological: Reports: No Symptoms Psychiatric: Reports: No Symptoms - Patient Data Vitals - Most Recent: Last Vital Signs Temp 97.5 F 06/18/19 08:16 Pulse 69 06/18/19 08:16 Resp 20 06/18/19 08:16 BP 139/76 06/18/19 08:16 Pulse Ox 96 06/18/19 08:16 Weight - Most Recent: 180 lb 12.8 oz I&O - Last 24 hours: Intake & Output 06/17/19 06/18/19 06/18/19 22:59 06:59 14:59 Intake Total 1550 950 Balance 1550 950 Lab Results - Last 24 hrs: Laboratory Results - last 24 hr 06/17/19 06/17/19 06/18/19 Range/Units 16:51 20:48 06:05 WBC 14.1 H (5.0-10.0) 10^3/uL RBC 4.13 L (4.2-5.4) 10^6/uL Hgb 11.0 L (12.0-16.0) g/dL Hct 35.3 L (37.0-47.0) % MCV 85.5 (80-100) fL MCH 26.6 L (27.0-34.0) pg MCHC 31.2 L (33.0-35.0) g/dL Plt Count 244 (150-450) 10^3/uL Neut % (Auto) 87.4 H (42.2-75.2) % Lymph % (Auto) 8.7 L (20.5-50.1) % [place] % (Auto) 3.8 (2-8) % Eos % (Auto) 0.0 L (1.0-3.0) % Baso % (Auto) 0.1 (0.0-1.0) % Sodium (135-145) mmol/L Potassium (3.6-5.0) mmol/L Chloride (101-111) mmol/L Carbon Dioxide (21.0-31.0) mmol/L Anion Gap BUN (7-18) mg/dL Creatinine (0.6-1.3) mg/dL Est Cr Clr Drug Dosing mL/min Estimated GFR (MDRD) Glucose (74-105) mg/dL POC Glucose 126 H 145 H (70-105) mg/dl Calcium (8.4-10.2) mg/dl 06/18/19 06/18/19 Range/Units 06:05 07:45 WBC (5.0-10.0) 10^3/uL RBC (4.2-5.4) 10^6/uL Hgb (12.0-16.0) g/dL Hct (37.0-47.0) % MCV (80-100) fL MCH (27.0-34.0) pg MCHC (33.0-35.0) g/dL Plt Count (150-450) 10^3/uL Neut % (Auto) (42.2-75.2) % Lymph % (Auto) (20.5-50.1) % [place] % (Auto) (2-8) % Eos % (Auto) (1.0-3.0) % Baso % (Auto) (0.0-1.0) % Sodium 141 (135-145) mmol/L Potassium 4.2 (3.6-5.0) mmol/L Chloride 108 (101-111) mmol/L Carbon Dioxide 25.0 (21.0-31.0) mmol/L Anion Gap 12.2 BUN 14 (7-18) mg/dL Creatinine 0.8 (0.6-1.3) mg/dL Est Cr Clr Drug Dosing 57.31 mL/min Estimated GFR (MDRD) > 60 Glucose 127 H (74-105) mg/dL POC Glucose 109 H (70-105) mg/dl Calcium 8.6 (8.4-10.2) mg/dl SONU Results - Last 24 hrs: Microbiology 06/16/19 07:35 Gram Stain - Final Sputum - Expectorated Sputum Culture - Preliminary YEAST 06/15/19 18:32 Aerobic Blood Culture - Preliminary Blood - Venous NO GROWTH AFTER 2 DAYS Anaerobic Blood Culture - Preliminary NO GROWTH AFTER 2 DAYS 06/15/19 18:36 Aerobic Blood Culture - Preliminary Blood - Venous - Lab Draw NO GROWTH AFTER 2 DAYS Anaerobic Blood Culture - Preliminary NO GROWTH AFTER 2 DAYS Med Orders - Current: Current Medications Acetaminophen (Tylenol) 650 mg PO Q4H PRN PRN Reason: Pain (Mild 1-3)/fever Last Admin: 06/17/19 19:35 Dose: 650 mg Hydrocodone Bitart/Acetaminophen ([place] 325-10 Mg) 1 tab PO Q4H PRN PRN Reason: Pain (moderate 4-6) Albuterol/Ipratropium (Duoneb 3.0-0.5 Mg/3 Ml) 3 ml NEB Q6HRRT [facility] Last Admin: 06/18/19 07:28 Dose: 3 ml Albuterol/Ipratropium (Duoneb 3.0-0.5 Mg/3 Ml) 3 ml NEB Q2H PRN PRN Reason: sob Last Admin: 06/16/19 21:25 Dose: 3 ml Benzocaine/Menthol (Cepacol Sore Throat) 1 lozenge MUCMEM Q6H PRN PRN Reason: Sore Throat Budesonide (Pulmicort) 0.5 mg INH BIDRT [facility] Last Admin: 06/18/19 07:28 Dose: 0.5 mg Guaifenesin/Phenylephrine HCl (Robitussin Dm) 10 ml PO TID [facility] Last Admin: 06/18/19 09:39 Dose: 10 ml Heparin Sodium (Porcine) (Heparin Sodium) 5,000 units SUBCUT Q8HR [facility] Last Admin: 06/18/19 05:59 Dose: 5,000 units Azithromycin 500 mg/ Sodium (Chloride) 250 mls @ 250 mls/hr IV Q24H [facility] Last Infusion: 06/17/19 23:05 Dose: Infused Ceftriaxone Sodium 1 gm/ (Sodium Chloride) 50 mls @ 50 mls/hr IV Q24H [facility] Last Admin: 06/17/19 19:26 Dose: 50 mls/hr Insulin Human Lispro (Humalog) 0 unit SUBCUT 0700,1100,1700,2100 [facility]; Protocol Last Admin: 06/18/19 08:01 Dose: Not Given Methylprednisolone Sodium Succinate (Solu-Medrol) 40 mg IVPUSH Q12HR [facility] Last Admin: 06/18/19 09:41 Dose: 40 mg Ondansetron HCl (Zofran Odt) 4 mg PO Q4H PRN PRN Reason: nausea, able to take PO Senna/Docusate Sodium (Senna Plus) 1 tab PO BID [facility] Last Admin: 06/18/19 09:39 Dose: 1 tab Sodium Chloride (Saline Flush) 10 ml FLUSH ASDIRECTED PRN PRN Reason: Keep Vein Open Last Admin: 06/18/19 09:41 Dose: 10 ml Zolpidem Tartrate (Ambien) 5 mg PO BEDTIME PRN PRN Reason: Sleep Last Admin: 06/17/19 01:30 Dose: 5 mg Discontinued Medications Albuterol/Ipratropium (Duoneb 3.0-0.5 Mg/3 Ml) 3 ml NEB ONETIME ONE Stop: 06/15/19 18:23 Last Admin: 06/15/19 18:41 Dose: 3 ml Guaifenesin (Robitussin) 200 mg PO Q6H PRN PRN Reason: COUGH Last Admin: 06/17/19 02:32 Dose: 200 mg Azithromycin 500 mg/ Sodium (Chloride) 250 mls @ 250 mls/hr IV ONETIME ONE Stop: 06/15/19 19:22 Last Admin: 06/15/19 19:11 Dose: 250 mls/hr Ceftriaxone Sodium 2 gm/ (Sodium Chloride) 100 mls @ 200 mls/hr IV ONETIME ONE Stop: 06/15/19 18:52 Last Admin: 06/15/19 18:39 Dose: 200 mls/hr Sodium Chloride (Normal Saline) 1,000 mls @ 999 mls/hr IV .BOLUS ONE Stop: 06/15/19 19:22 Last Admin: 06/15/19 18:39 Dose: 999 mls/hr Influenza Virus Vaccine (Fluad 1499-6164 Syringe) 45 mcg IM .ONCE ONE Stop: 06/18/19 11:01 Last Admin: 06/18/19 11:14 Dose: 45 mcg Insulin Human Lispro (Humalog) 0 unit SUBCUT ACBED JACKY; Protocol Last Admin: 06/16/19 18:02 Dose: Not Given Methylprednisolone Sodium Succinate (Solu-Medrol) 125 mg IVPUSH ONETIME ONE Stop: 06/15/19 18:23 Last Admin: 06/15/19 18:42 Dose: 125 mg Methylprednisolone Sodium Succinate (Solu-Medrol) 40 mg IVPUSH Q8H [facility] Last Admin: 06/17/19 10:03 Dose: 40 mg Pneumococcal Polyvalent Vaccine (Pneumovax 23) 0.5 ml IM .ONCE ONE Stop: 06/18/19 11:01 Last Admin: 06/18/19 11:09 Dose: 0.5 ml Sodium Chloride (Saline Flush) 10 ml FLUSH ASDIRECTED PRN PRN Reason: Keep Vein Open Last Admin: 06/15/19 18:30 Dose: 10 ml Sodium Chloride (Saline Flush) 10 ml FLUSH ASDIRECTED PRN PRN Reason: Keep Vein Open - Exam General: Reports: Alert, Oriented, Cooperative, No Acute Distress HEENT: Reports: Pupils Equal, Pupils Reactive, Mucous Membr. Moist/[place] Neck: Reports: Supple Lungs: Reports: Clear to Auscultation, Normal Respiratory Effort Cardiovascular: Reports: Regular Rate, Regular Rhythm GI/Abdominal Exam: Normal Bowel Sounds, Soft, Non-Tender, No Distention Extremities: Normal Inspection, Non-Tender, No Pedal Edema Skin: Reports: Warm, Dry, Intact Neurological: Reports: No New Focal Deficit Psy/Mental Status: Reports: Alert, Normal Affect, Normal Mood
== END 2019-06-18 12:50 | disposition home or self-care (01) | DRG 190 ==
LOC: DL.ED 18:03 → DL.MS 19:30 → UNDOADMIN 19:44
PROVIDERS: ADMIT Internal Medicine; ATTEND Internal Medicine
DX: J44.1 Chronic obstructive pulmonary disease with (acute) exacerbation (principal); H54.7 Unspecified visual loss; J96.01 Acute respiratory failure with hypoxia; J20.9 Acute bronchitis, unspecified; J44.0 Chronic obstructive pulmonary disease with (acute) lower respiratory infection; Z88.1 Allergy status to other antibiotic agents; Z87.11 Personal history of peptic ulcer disease; Z79.51 Long term (current) use of inhaled steroids; R06.2 Wheezing; R05 Cough; R06.02 Shortness of breath; R06.00 Dyspnea, unspecified; F32.9 Major depressive disorder, single episode, unspecified; F17.210 Nicotine dependence, cigarettes, uncomplicated; Z79.899 Other long term (current) drug therapy; Z90.49 Acquired absence of other specified parts of digestive tract; Z23 Encounter for immunization
CPT/HCPCS: 36415; 71046; 80053; 83605; 85025; 87040 ×2; 87081; 87430; 94640; 96365; 96367; 96375; 99285; J0456; J0696; J2930; J7030; J7050 ×2; 80048; 82962; 85027; 87070; 87205; 90653; 90732; 99284; A9270-GY; G0009; J1644; J1815; J2920; J7620-GY

== ENCOUNTER 2020-02-24 14:12 | Emergency (ER) | payer MEDICARE, MEDICAID ==
--- NOTE | 2020-02-24 14:30 | EDM.PDOC ---
ED HPI GENERAL MEDICAL PROBLEM - General Chief Complaint: Upper Extremity Injury/Pain Stated Complaint: LEFT HAND SWOLLEN Time Seen by Provider: 02/24/20 14:15 Source of Information: Reports: Patient History Limitations: Reports: No Limitations - History of Present Illness INITIAL COMMENTS - FREE TEXT/NARRATIVE: This 69 yo female patient reports to the ED with a 3 day history of swelling in her left hand and wrist. The patient reports she may have bumped her hand, but does not remember any specific injury. The patient has not been seen or attempted to be seen in the Clinic due to her belief that the swelling would just go away. Onset Date: 02/22/20 Duration: Constant Location: Reports: Upper Extremity, Left Quality: Reports: Ache, Dull Severity: Moderate Improves with: Reports: None Worsens with: Reports: None Context: Reports: Other Associated Symptoms: Reports: No Other Symptoms - Related Data Allergies Allergy/AdvReac Type Severity Reaction Status Date / Time levofloxacin Allergy Hives Verified 02/24/20 14:19 Home Meds: Home Meds Cetirizine HCl [Zyrtec] 10 mg PO DAILY 06/08/18 [History] Albuterol Sulfate [Proair Hfa] 2 inh INH Q4HR PRN 07/09/18 [History] Fluticasone Propionate [Flonase] 2 spray NASBOTH DAILY 07/09/18 [History] Formoterol Fumarate [Perforomist] 2 ml INH BID 07/09/18 [History] Tiotropium [Spiriva HandiHaler] 1 cap INH DAILY 07/09/18 [History] Budesonide [Pulmicort] 2 ml INH BID 07/10/18 [History] Albuterol/Ipratropium [DuoNeb 3.0-0.5 MG/3 ML] 3 ml NEB QID 06/15/19 [History] Azithromycin 500 mg PO DAILY #3 tablet 06/18/19 [Rx] Cefpodoxime [Vantin] 200 mg PO BID #6 tab 06/18/19 [Rx] Dextromethorphan/guaiFENesin [Robitussin DM] 10 ml PO TID #150 ml 06/18/19 [Rx] predniSONE [Prednisone] 40 mg PO DAILY #3 tablet 06/18/19 [Rx] Past Medical History HEENT History: Reports: Impaired Vision Cardiovascular History: Reports: SOB on Exertion Respiratory History: Reports: Asthma, Bronchitis, Recurrent, COPD Gastrointestinal History: Reports: Other (See Below) Other Gastrointestinal History: ulcer years ago- thinks 2005 [employer] History: Reports: Psychiatric History: Reports: Depression - Past Surgical History GI Surgical History: Reports: Appendectomy Social & Family History - Family History Family Medical History: Noncontributory - Tobacco Use Smoking Status *Q: Never Smoker Second Hand Smoke Exposure: No - Caffeine Use Caffeine Use: Reports: Coffee - Recreational Drug Use Recreational Drug Use: No - Living Situation & Occupation Living situation: Reports: with Family Occupation: Retired Review of Systems - Review of Systems Review Of Systems: Comprehensive ROS is negative, except as noted in HPI. ED EXAM, GENERAL - Physical Exam Exam: See Below Exam Limited By: No Limitations General Appearance: Alert, WD/WN, Mild Distress Eye Exam: Bilateral Eye: EOMI, Normal Inspection, PERRL Ears: Normal External Exam, Normal Canal, Hearing Grossly Normal, Normal TMs Nose: Normal Inspection, Normal Mucosa, No Blood Throat/Mouth: Normal Inspection Head: Atraumatic, Normocephalic Neck: Normal Inspection, Supple, Non-Tender, Full Range of Motion Respiratory/Chest: No Respiratory Distress, Lungs Clear, Normal Breath Sounds, No Accessory Muscle Use, Chest Non-Tender Cardiovascular: Normal Peripheral Pulses, Regular Rate, Rhythm (Female) Exam: Deferred Rectal (Female) Exam: Deferred Extremities: Arm Pain (left hand and wrist pain and swelling) Neurological: Alert, Oriented, CN II-XII Intact, Normal Cognition, Normal Gait, Normal Reflexes, No Motor/Sensory Deficits Psychiatric: Normal Affect, Normal Mood Skin Exam: Warm, Dry, Intact, Normal Color, No Rash Lymphatic: No Adenopathy Course - Vital Signs Last Recorded V/S: Last Vital Signs Temp 36.4 C 02/24/20 14:27 Pulse 84 02/24/20 14:27 Resp 16 02/24/20 14:27 BP 123/84 02/24/20 14:27 Pulse Ox 97 02/24/20 14:27 - Orders/Labs/Meds Orders: Active Orders 24 hr Category Date Time Status Hand Comp Min 3V Lt [CR] Urgent Exams 02/24/20 14:23 Ordered DME for Discharge [COMM] Urgent Oth 02/24/20 16:37 Ordered Meds: Medications Discontinued Medications Generic Name Dose Route Start Last Admin Trade Name Freq PRN Reason Stop Dose Admin Ketorolac Tromethamine 30 mg 02/24/20 16:37 Toradol IM 02/24/20 16:38 ONETIME ONE Departure - Departure Time of Disposition: 16:42 Disposition: Home, Self-Care 01 Condition: Fair Clinical Impression: Soft tissue swelling - Discharge Information *PRESCRIPTION DRUG MONITORING PROGRAM REVIEWED*: Not Applicable *COPY OF PRESCRIPTION DRUG MONITORING REPORT IN PATIENT DAVE: Not Applicable Forms: ED Department Discharge Care Plan Goals: The patient was advised of the examination and x-ray results during the visit. The patient's hand/wrist was wrapped with an GLADYS wrap and the patient was given an injection of Toradol while in the ED. The patient was discharged with a script for Toradol (10 mg) #20 to take 1 by mouth every 6 hours with food. If the patient has any additional symptoms or concerns, the patient should either return to the emergency department or visit her primary care facility. Sepsis Event Note (ED) - Focused Exam Vital Signs: Vital Signs Temp Pulse Resp BP Pulse Ox 02/24/20 14:27 36.4 C 84 16 123/84 97 - My Orders Last 24 Hours: My Active Orders 02/24/20 14:23 Hand Comp Min 3V Lt [CR] Urgent 02/24/20 16:37 DME for Discharge [COMM] Urgent - Assessment/Plan Last 24 Hours: My Active Orders 02/24/20 14:23 Hand Comp Min 3V Lt [CR] Urgent 02/24/20 16:37 DME for Discharge [COMM] Urgent
[2020-02-24] MEDS ORDERED: Ketorolac 30 MG/ML SDV IM ONE (16:37)
--- NOTE | 2020-02-24 17:18 | CR ---
EXAMINATION: Hand Comp Min 3V Lt SEX: Female AGE: 69 years CLINICAL HISTORY: 69-year-old female with left hand swelling and pain. INTERPRETATION: 1. Generalized osteopenia consistent with age and gender. 2. 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 3. Soft tissue swelling particularly dorsum of the hand. Clinical cellulitis? Trauma? 4. No foreign bodies or inflammatory periostitis. 5. No sign of acute left hand or wrist fracture/dislocation. CONCLUSION: STS. Osteopenia. Arthritis. No foreign bodies or fractures.
== END 2020-02-24 16:49 | disposition home or self-care (01) ==
LOC: DL.ED 14:12
DX: M79.89 Other specified soft tissue disorders (principal); Z79.899 Other long term (current) drug therapy; J44.9 Chronic obstructive pulmonary disease, unspecified; Z88.1 Allergy status to other antibiotic agents
CPT/HCPCS: 73130; 96372; 99283; J1885

== ENCOUNTER 2020-06-25 07:19 | Day surgery (SDC) | payer MEDICARE, MEDICAID ==
[~2020-06-25 07:19] MED LIST: Dextrose 5%-0.45% NaCl 1,000 ML IV SCH; Midazolam 1 MG/ML 2 ML SDV ONE; Sodium Chloride 0.9% 10 ML Syringe FLUSH PRN; fentaNYL 100 MCG/2 ML SDV ONE
[2020-06-25] MEDS ORDERED: Midazolam 1 MG/ML 2 ML SDV IV ONE ×3 (07:20→08:33)
[2020-06-25] MEDS ORDERED: fentaNYL 100 MCG/2 ML SDV IV ONE ×3 (07:20→08:32)
--- NOTE | 2020-06-25 15:37 | OR ---
DATE: 06/25/2020 PROCEDURE: Esophagogastroduodenoscopy and multiple pinch biopsies. INSTRUMENT USED: GIF-HQ190 Olympus video panendoscope. PREMEDICATIONS: No oral or topical anesthesia used. Fentanyl 100 mcg intravenous, Versed 1.5 mg intravenous. Nasal O2 cannula. The procedure was done under pulse oximetry, BP recording, and monitoring analyst. INDICATION: The patient with unexplained iron-deficiency anemia. Esophagogastroduodenoscopy is performed for detection of any active erosive lesions, Espinosa esophagus and/or malignancy also under consideration, H pylori status to be determined, small bowel biopsies to be obtained for celiac disease, endoscopic hemostasis therapy if needed. DESCRIPTION OF PROCEDURE: The scope was passed with ease. Adequate visualization of the esophagus was made from proximal to distal areas. No upper esophageal lesions identified. No distal esophageal stricture. No uphill or downhill esophageal viruses. No Noemi-Okeefe tear. No evidence of erosive esophagitis by [place] criteria. No esophageal polyp or tumor mass identified. Z-line was seen at around 40 cm distal to the oral verge, configuration consistent with grade 1 by ZAP classification. No proximal gastric varices noted. Gastric fundus examination by retroflexion showed no polypoid lesions. No gastric ulcer, malignant mass, or vascular ectasia identified. Duodenal bulb showed no ulcer. Visualized second part of duodenum was unremarkable. Multiple pinch biopsies, 4 in number taken from different areas of the second part of the duodenum and tissues were also obtained from the duodenal bulb at 9 and 12 o'clock positions, and sent for any histopathologic evidence of celiac disease. Multiple pinch biopsies were also taken from the gastric antrum and proximal body and sent for PyloriTek test for H pylori and histopathology. No bleeding was noted from any of the visualized areas at the completion of the examination. Photographs were taken of duodenal bulb, gastric antrum, fundus, and rest of the esophagus. IMPRESSION: Normal study. The patient tolerated the procedure well. [facility] /[id number]
--- NOTE | 2020-06-28 07:52 | LETTER ---
06/25/2020 Radha Norris NP [address] [address] RE: CHERYL MOSHER : 1950 Dear Ms. Norris: Ms. Cheryl Mosher had esophagogastroduodenoscopy done this morning and she tolerated the procedure well. I herewith send a copy of the endoscopy note and photographs for your review. Thank you. Sincerely, [facility] /[id number]
--- NOTE | 2020-06-28 13:51 | LETTER ---
06/28/2020 Radha Norris NP [address] [address]. RE: CHERYL MOSHER : 1950 Dear Ms. Norris: Ms. Cheryl Mosher had esophagogastroduodenoscopy done and she tolerated the procedure well. I herewith send a copy of the endoscopy note and photographs for your review. Thank you. Sincerely, [facility] /[id number]
== END 2020-06-25 10:39 | disposition home or self-care (01) ==
LOC: DL.ENDO 07:19
PROVIDERS: ATTEND Internal Medicine Gastroenterology
DX: K29.50 Unspecified chronic gastritis without bleeding (principal); B96.81 Helicobacter pylori [H. pylori] as the cause of diseases classified elsewhere; K31.89 Other diseases of stomach and duodenum; M19.90 Unspecified osteoarthritis, unspecified site; D50.9 Iron deficiency anemia, unspecified; K29.80 Duodenitis without bleeding; J44.9 Chronic obstructive pulmonary disease, unspecified; Z90.49 Acquired absence of other specified parts of digestive tract
CPT/HCPCS: 43239; 87077; J2250; J3010; J7042; 88305

== ENCOUNTER 2020-06-29 06:36 | Day surgery (SDC) | payer MEDICARE, MEDICAID, OTHER ==
[2020-06-29] MEDS ORDERED: Midazolam 1 MG/ML 2 ML SDV IV ONE ×9 (06:37→07:29)
[2020-06-29] MEDS ORDERED: fentaNYL 100 MCG/2 ML SDV IV ONE ×3 (06:37→07:08)
--- NOTE | 2020-06-29 08:47 | OR ---
DATE: 06/29/2020 PROCEDURE: Total colonoscopy. INSTRUMENT USED: [id number]-[id number] Olympus video colonoscope. PREMEDICATIONS: Fentanyl 100 mcg intravenous, Versed 5 mg intravenous. Nasal O2 cannula. The procedure was done under pulse oximetry, BP recording, and personnel monitor. INDICATION: The patient with unexplained iron-deficiency anemia. Colonoscopic examination is done for detection of any polypoid lesions and removal, endoscopic hemostasis therapy if needed. DESCRIPTION OF PROCEDURE: Initial rectal exam was unremarkable. Rigid anoscopy was normal. The colonoscope was passed with relative ease up to the ileocecal area. Photographs were taken of the normal-appearing cecum, identified by double-bulged ileocecal folds. No bleeding was noted from any of the visualized areas at the commencement of the examination. The bowel preparation was quite inadequate. Large amount of fecal material solid and liquid noted. [place] scale 1 in all the regions, total scope 3, no stricture, no vascular ectasia, no large isolated ulcerations seen. No evidence of diffuse inflammatory bowel disease in the form of friability, contact bleeding, or ulcerations. No polyp or tumor mass identified. Probing the proximal sides of folds and flexures using adequate distention and clearing up the stool material. Withdrawal of the scope was made, cecum to rectum time over 6 minutes. No bleeding was noted from any of the visualized areas at the completion of the examination. IMPRESSION: Normal study. The patient tolerated the procedure well. [facility] /[id number]
--- NOTE | 2020-06-29 10:06 | LETTER ---
06/29/2020 RE: CHERYL MOSHER : 1950 Radha Norris NP [address] [place] [address] Dear Ms. Norris: Ms. Cheryl Mosher had colonoscopy examination done this morning, and she tolerated the procedure well. I herewith send a copy of the endoscopy note and photographs for your review. Thank you. Sincerely, [facility] /[id number]
--- NOTE | 2020-06-30 06:51 | LETTER ---
06/29/2020 RE: SANDOVALCHERYL GRIFFITH : 1950 Radha Norris NP [address] [place] [address] Dear Ms. Norris: Ms. Cheryl Mosher had colonoscopic examination done and she tolerated the procedure well. I herewith send a copy of the endoscopy note and photographs for your review. Thank you. Sincerely, [facility] /[id number]
== END 2020-06-29 09:43 | disposition home or self-care (01) ==
LOC: DL.ENDO 06:36
PROVIDERS: ATTEND Internal Medicine Gastroenterology
DX: D50.9 Iron deficiency anemia, unspecified (principal); J44.9 Chronic obstructive pulmonary disease, unspecified; E66.01 Morbid (severe) obesity due to excess calories; Z87.11 Personal history of peptic ulcer disease; Z90.89 Acquired absence of other organs
CPT/HCPCS: 45378; J2250; J3010; J7042

== ENCOUNTER 2020-07-10 11:46 | Emergency (ER) | payer MEDICARE, MEDICAID, OTHER ==
[2020-07-10] MEDS ORDERED: Sodium Chloride 0.9% 1,000 ML IV ONE (11:54)
--- NOTE | 2020-07-10 12:33 | EDM.PDOC ---
<Andrei De La Rosa - Last Filed: 07/10/20 13:32> ED HPI GENERAL MEDICAL PROBLEM - General Chief Complaint: Cardiovascular Problem Stated Complaint: AMBULANCE Time Seen by Provider: 07/10/20 11:56 - Related Data Allergies Allergy/AdvReac Type Severity Reaction Status Date / Time levofloxacin Allergy Hives Verified 07/10/20 11:50 Home Meds: Home Meds Cetirizine HCl [Zyrtec] 10 mg PO DAILY 06/08/18 [History] Albuterol Sulfate [Proair Hfa] 2 inh INH Q4HR PRN 07/09/18 [History] Fluticasone Propionate [Flonase] 2 spray NASBOTH DAILY PRN 07/09/18 [History] Formoterol Fumarate [Perforomist] 2 ml INH BID 07/09/18 [History] Tiotropium [Spiriva HandiHaler] 1 cap INH DAILY 07/09/18 [History] Budesonide [Pulmicort] 2 ml INH BID 07/10/18 [History] Albuterol/Ipratropium [DuoNeb 3.0-0.5 MG/3 ML] 3 ml NEB TID 06/15/19 [History] Cholecalciferol (Vitamin D3) [Vitamin D3] 10 mcg PO DAILY 03/26/20 [History] Ferrous Gluconate 324 mg PO DAILY 03/26/20 [History] guaiFENesin [Mucinex] 600 mg PO ASDIRECTED 04/19/20 [History] Famotidine 20 mg PO DAILY 06/28/20 [History] Course - Re-Assessments/Exams Free Text/Narrative Re-Assessment/Exam: 07/10/20 13:44 I personally performed or re-performed the physical examination and medical decision making. I have verified all student documentation or findings, inc luding history, physical exam and/or medical decision making. Departure - Departure Disposition: Home, Self-Care 01 Clinical Impression: Palpitations, Paroxysmal supraventricular tachycardia Instructions: Supraventricular Tachycardia, Adult, [id number], Orthostatic Hypotension, Palpitations, [id number] Forms: ED Department Discharge Additional Instructions: Increase fluid intake to maintain hydration. Use caution with positional changes to prevent dizziness or orthostatic hypotension. Rest for the remainder of the weekend. Follow-up with your PCP on Sunday for further cardiac work-up, consider echocardiogram. Notify PCP if symptoms persist with use of albuterol. Return to ER if symptoms return over the weekend. <Lluvia Prado - Last Filed: 07/10/20 14:11> ED HPI GENERAL MEDICAL PROBLEM - General Source of Information: Reports: Patient, EMS, RN, RN Notes Reviewed History Limitations: Reports: No Limitations - History of Present Illness INITIAL COMMENTS - FREE TEXT/NARRATIVE: pt arrives via [facility]. pt reports not feeling well since taking her nebulizer this am. states her pulse oximetry this am read high, but was bouncing up and down to extreme highs and lows. states she felt palpitations and called the ambulance. EMS reports administering Adenosine with no change, administered Versed and cardioverted. pt reports being on a triple antibiotic therapy after recent colonoscopy 06/29. also reports her nebulizer and inhalers being changed around the same time. Reports overall not feeling well since that time. denies any other recent illness. denies CP, denies SOB. 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: Musculoskeletal History: Reports: Back Pain, Chronic, Gout Neurological History: Reports: Migraines Psychiatric History: Reports: Depression Endocrine/Metabolic History: Reports: None Hematologic History: Reports: Iron Deficiency Immunologic History: Reports: None Oncologic (Cancer) History: Reports: None Dermatologic History: Reports: None - Infectious Disease History Infectious Disease History: Reports: Chicken Pox, Measles, TB - Past Surgical History Head Surgeries/Procedures: Reports: None HEENT Surgical History: Reports: Tonsillectomy Cardiovascular Surgical History: Reports: None Respiratory Surgical History: Reports: None GI Surgical History: Reports: Appendectomy, Colonoscopy, EGD Female Surgical History: Reports: None Neurological Surgical History: Reports: None Musculoskeletal Surgical History: Reports: None Social & Family History - Family History Family Medical History: No Pertinent Family History - Tobacco Use Tobacco Use Status *Q: Former Tobacco User Used Tobacco, but Quit: Yes Month/Year Tobacco Last Used: 2017 - Caffeine Use Caffeine Use: Reports: Coffee Caffeine Use Comment: 3 cups coffee 2x week - Recreational Drug Use Recreational Drug Use: No - Living Situation & Occupation Living situation: Reports: with Family Occupation: Retired ED ROS GENERAL - Review of Systems Review Of Systems: Comprehensive ROS is negative, except as noted in HPI. ED EXAM, GENERAL - Physical Exam Exam: See Below Exam Limited By: No Limitations General Appearance: Alert, WD/WN, Mild Distress Eye Exam: Bilateral Eye: EOMI, Normal Inspection Ears: Normal External Exam, Hearing Grossly Normal Nose: Normal Inspection Throat/Mouth: Normal Inspection Head: Atraumatic, Normocephalic Neck: Normal Inspection, Supple, Non-Tender, Full Range of Motion Respiratory/Chest: No Respiratory Distress, Lungs Clear, Rhonchi (Right base) Cardiovascular: Normal Peripheral Pulses, Regular Rate, Rhythm, No Edema GI/Abdominal: Normal Bowel Sounds, Soft, Non-Tender (Female) Exam: Deferred Rectal (Female) Exam: Deferred Back Exam: Normal Inspection, Full Range of Motion Extremities: Normal Inspection, Normal Range of Motion, Non-Tender, No Pedal Edema Neurological: Alert, Oriented, Normal Cognition Psychiatric: Normal Affect, Normal Mood Skin Exam: Warm, Dry, Intact, Normal Color, No Rash Lymphatic: No Adenopathy Course - Vital Signs Last Recorded V/S: Last Vital Signs Temp 97.4 F 07/10/20 11:56 Pulse 102 H 07/10/20 11:56 Resp 23 H 07/10/20 11:56 BP 84/58 L 07/10/20 11:56 Pulse Ox 100 07/10/20 11:56 Orthostatic Blood Pressure [ 101/62 Standing] Orthostatic Blood Pressure [ 93/64 Sitting] Orthostatic Blood Pressure [ 93/60 Supine] - Orders/Labs/Meds Orders: Active Orders 24 hr Category Date Time Status DRUG SCREEN URINE BIORAD [URCHEM] Stat Lab 07/10/20 11:52 Ordered Labs: Laboratory Tests 07/10/20 07/10/20 07/10/20 Range/Units 12:02 12:02 12:02 WBC 4.7 L (5.0-10.0) 10^3/uL RBC 4.61 (4.2-5.4) 10^6/uL Hgb 13.4 D (12.0-16.0) g/dL Hct 40.2 (37.0-47.0) % MCV 87.2 (80-100) fL MCH 29.1 (27.0-34.0) pg MCHC 33.3 (33.0-35.0) g/dL Plt Count 179 (150-450) 10^3/uL Neut % (Auto) 70.1 (42.2-75.2) % Lymph % (Auto) 19.5 L (20.5-50.1) % Russell % (Auto) 8.1 H (2-8) % Eos % (Auto) 2.1 (1.0-3.0) % Baso % (Auto) 0.2 (0.0-1.0) % Sodium 136 (136-145) mmol/L Potassium 3.7 (3.5-5.1) mmol/L Chloride 104 (98-107) mmol/L Carbon Dioxide 24 (21-32) mmol/L Anion Gap 11.7 (7-13) mEq/L BUN 9 (7-18) mg/dL Creatinine 0.87 (0.55-1.02) mg/dL Est Cr Clr Drug Dosing 51.96 mL/min Estimated GFR (MDRD) > 60 BUN/Creatinine Ratio 10.3 (No establ ref range) Glucose 98 (74-99) mg/dL Calcium 8.1 L (8.5-10.1) mg/dL Magnesium 1.9 (1.8-2.4) mg/dL Total Bilirubin 0.5 (0.2-1.0) mg/dL AST 25 (15-37) U/L ALT 34 (14-59) U/L Alkaline Phosphatase 126 H (46-116) U/L Troponin I 0.027 (0.000-0.056) ng/mL Total Protein 6.2 L (6.4-8.2) g/dL Albumin 2.9 L (3.4-5.0) g/dL Globulin 3.3 Albumin/Globulin Ratio 0.88 TSH, Ultra Sensitive 0.83 (0.36-3.74) uIU/mL Meds: Medications Discontinued Medications Generic Name Dose Route Start Last Admin Trade Name Freq PRN Reason Stop Dose Admin Sodium Chloride 1,000 mls @ 999 mls/hr 07/10/20 11:54 07/10/20 12:03 Normal Saline IV 07/10/20 12:54 999 mls/hr .BOLUS ONE Administration - Radiology Interpretation Free Text/Narrative:: PROCEDURE INFORMATION: Exam: XR Chest, 1 View Exam date and time: 07/10/2020 12:13 PM Age: 70 years old Clinical indication: Other: Svt TECHNIQUE: Imaging protocol: XR of the chest Views: 1 view. COMPARISON: CR Chest 2V 06/15/2019 6:50 PM FINDINGS: Lungs: Unremarkable. No consolidation. Pleural space: Unremarkable. No pleural effusion. No pneumothorax. Heart/Mediastinum: Unremarkable. No cardiomegaly. Right chest pad placement probably secondary to cardioversion Bones/joints: Unremarkable. IMPRESSION: No acute findings. Departure - Departure Time of Disposition: 14:00 Sepsis Event Note (ED) - Evaluation Sepsis Screening Result: No Definite Risk - Focused Exam Vital Signs: Vital Signs Temp Pulse Resp BP Pulse Ox 07/10/20 11:56 97.4 F 102 H 23 H 84/58 L 100 - My Orders Last 24 Hours: My Active Orders 07/10/20 11:52 DRUG SCREEN URINE BIORAD [URCHEM] Stat - Assessment/Plan Last 24 Hours: My Active Orders 07/10/20 11:52 DRUG SCREEN URINE BIORAD [URCHEM] Stat
[2020-07-10 12:38] LABS: ANION GAP 11.7 mEq/L (7-13); CHLORIDE,CL 104 mmol/L (98-107); SODIUM,NA 136 mmol/L (136-145)
--- NOTE | 2020-07-10 13:04 | CR ---
PROCEDURE INFORMATION: Exam: XR Chest, 1 View Exam date and time: 07/10/2020 12:13 PM Age: 70 years old Clinical indication: Other: Svt TECHNIQUE: Imaging protocol: XR of the chest Views: 1 view. COMPARISON: CR Chest 2V 06/15/2019 6:50 PM FINDINGS: Lungs: Unremarkable. No consolidation. Pleural space: Unremarkable. No pleural effusion. No pneumothorax. Heart/Mediastinum: Unremarkable. No cardiomegaly. Right chest pad placement probably secondary to cardioversion Bones/joints: Unremarkable. IMPRESSION: No acute findings.
== END 2020-07-10 13:58 | disposition home or self-care (01) ==
LOC: DL.ED 11:46
DX: I47.1 Supraventricular tachycardia (principal); J44.9 Chronic obstructive pulmonary disease, unspecified; K21.9 Gastro-esophageal reflux disease without esophagitis; Z88.1 Allergy status to other antibiotic agents; Z90.49 Acquired absence of other specified parts of digestive tract; Z87.891 Personal history of nicotine dependence; Z79.899 Other long term (current) drug therapy
CPT/HCPCS: 36415; 71045; 80053; 83735; 84443; 84484; 85025; 93005; 99285; J7030

== ENCOUNTER 2021-02-16 00:41 | Emergency (ER) | payer MEDICARE, MEDICAID ==
[2021-02-16] MEDS ORDERED: Albuterol/Ipratropium 3.0-0.5 MG/3 ML Neb Soln NEB ONE (01:11)
[2021-02-16 01:49] LABS: ANION GAP 14.5 mEq/L (7-13); CHLORIDE,CL 107 mmol/L (98-107); SODIUM,NA 144 mmol/L (136-145)
--- NOTE | 2021-02-16 02:11 | EDM.PDOC ---
ED HPI GENERAL MEDICAL PROBLEM - General Chief Complaint: Chest Pain Stated Complaint: CHEST, COUGHING, HEAD THROBING. Time Seen by Provider: 02/16/21 01:00 Source of Information: Reports: Patient, RN, RN Notes Reviewed History Limitations: Reports: No Limitations - History of Present Illness INITIAL COMMENTS - FREE TEXT/NARRATIVE: Patient is a 70-year-old female who presents to ER with complaint of shortness of breath, cough. Patient states she did fall couple weeks ago and injured some left ribs, unsure if she broke any as she did not follow-up with any care at that time. Patient states she does have a history of COPD and does get pneumonia yearly. States she has been using her nebulizers and her inhalers at home as prescribed. Patient denies any recent fever chills, nausea, diarrhea, chest pains. Onset: Gradual Left Thoracic Pain Score (Numeric/FACES): 7 - Related Data Allergies Allergy/AdvReac Type Severity Reaction Status Date / Time levofloxacin Allergy Hives Verified 07/10/20 11:50 Home Meds: Home Meds Cetirizine HCl [Zyrtec] 10 mg PO DAILY 06/08/18 [History] Albuterol Sulfate [Proair Hfa] 2 inh INH Q4HR PRN 07/09/18 [History] Fluticasone Propionate [Flonase] 2 spray NASBOTH DAILY PRN 07/09/18 [History] Formoterol Fumarate [Perforomist] 2 ml INH BID 07/09/18 [History] Tiotropium [Spiriva HandiHaler] 1 cap INH DAILY 07/09/18 [History] Budesonide [Pulmicort] 2 ml INH BID 07/10/18 [History] Albuterol/Ipratropium [DuoNeb 3.0-0.5 MG/3 ML] 3 ml NEB TID 06/15/19 [History] Cholecalciferol (Vitamin D3) [Vitamin D3] 10 mcg PO DAILY 03/26/20 [History] Ferrous Gluconate 324 mg PO DAILY 03/26/20 [History] guaiFENesin [Mucinex] 600 mg PO ASDIRECTED 04/19/20 [History] Famotidine 20 mg PO DAILY 06/28/20 [History] Past Medical History HEENT History: Reports: Cataract, Impaired Vision, Macular Degeneration Cardiovascular History: Reports: SOB on Exertion Respiratory History: Reports: Asthma, Bronchitis, Recurrent, COPD, Pneumonia, Recurrent, SOB, TB Gastrointestinal History: Reports: Chronic Constipation, GI Bleed, Other (See Below) Other Gastrointestinal History: ulcer years ago- think2005 Genitourinary History: Reports: None 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: Musculoskeletal History: Reports: Back Pain, Chronic, Gout Neurological History: Reports: Migraines Psychiatric History: Reports: Depression Endocrine/Metabolic History: Reports: None Hematologic History: Reports: Iron Deficiency Immunologic History: Reports: None Oncologic (Cancer) History: Reports: None Dermatologic History: Reports: None - Infectious Disease History Infectious Disease History: Reports: Chicken Pox, Measles, TB - Past Surgical History Head Surgeries/Procedures: Reports: None HEENT Surgical History: Reports: Tonsillectomy Cardiovascular Surgical History: Reports: None Respiratory Surgical History: Reports: None GI Surgical History: Reports: Appendectomy, EGD Female Surgical History: Reports: None Neurological Surgical History: Reports: None Musculoskeletal Surgical History: Reports: None Social & Family History - Family History Family Medical History: No Pertinent Family History - Tobacco Use Tobacco Use Status *Q: Current Some Day Tobacco User Years of Tobacco use: 53 Packs/Tins Daily: 0.1 Second Hand Smoke Exposure: Yes - Caffeine Use Caffeine Use: Reports: Coffee, Soda Caffeine Use Comment: 3 cups coffee 2x week - Recreational Drug Use Recreational Drug Use: No - Living Situation & Occupation Living situation: Reports: with Family Occupation: Retired ED ROS GENERAL - Review of Systems Review Of Systems: Comprehensive ROS is negative, except as noted in HPI. ED EXAM, GENERAL - Physical Exam Exam: See Below Exam Limited By: No Limitations General Appearance: Alert, WD/WN, Mild Distress Eye Exam: Bilateral Eye: EOMI, Normal Inspection Ears: Normal External Exam, Hearing Grossly Normal Nose: Normal Inspection Throat/Mouth: Normal Inspection, Normal Voice, No Airway Compromise Head: Atraumatic, Normocephalic Neck: Normal Inspection, Supple, Non-Tender, Full Range of Motion Respiratory/Chest: No Respiratory Distress, Chest Non-Tender, Decreased Breath Sounds, Wheezing (insp, exp, slight, throughout) Cardiovascular: Normal Peripheral Pulses, Regular Rate, Rhythm, No Edema, No Gallop, No JVD, No Murmur, No Rub Peripheral Pulses: 2+: Radial (L), Radial (R) GI/Abdominal: Normal Bowel Sounds, Soft, Non-Tender (Female) Exam: Deferred Rectal (Female) Exam: Deferred Back Exam: Normal Inspection, Full Range of Motion, NT Extremities: Normal Inspection, Normal Range of Motion, Non-Tender, Normal Capillary Refill, No Pedal Edema Neurological: Alert, Oriented, CN II-XII Intact, Normal Cognition, Normal Gait, Normal Reflexes, No Motor/Sensory Deficits Psychiatric: Normal Affect, Normal Mood Skin Exam: Warm, Dry, Intact, Normal Color, No Rash Lymphatic: No Adenopathy Course - Vital Signs Last Recorded V/S: Last Vital Signs Temp 98 F 02/16/21 00:46 Pulse 100 02/16/21 00:46 Resp 20 02/16/21 00:46 BP 118/73 02/16/21 00:56 Pulse Ox 93 L 02/16/21 00:46 - Orders/Labs/Meds Orders: Active Orders 24 hr Category Date Time Status RT Aerosol Therapy [RC] ASDIRECTED Care 02/16/21 01:11 Active Chest 1V Frontal [CR] Stat Exams 02/16/21 01:13 Taken Labs: Laboratory Tests 02/16/21 02/16/21 Range/Units 01:26 01:26 WBC 9.2 (5.0-10.0) 10^3/uL RBC 4.64 (4.2-5.4) 10^6/uL Hgb 13.3 (12.0-16.0) g/dL Hct 41.5 (37.0-47.0) % MCV 89.4 (80-100) fL MCH 28.7 (27.0-34.0) pg MCHC 32.0 L (33.0-35.0) g/dL Plt Count 284 D (150-450) 10^3/uL Neut % (Auto) 62.3 (42.2-75.2) % Lymph % (Auto) 20.7 (20.5-50.1) % [place] % (Auto) 7.5 (2-8) % Eos % (Auto) 9.3 H (1.0-3.0) % Baso % (Auto) 0.2 (0.0-1.0) % Sodium 144 (136-145) mmol/L Potassium 3.5 (3.5-5.1) mmol/L Chloride 107 (98-107) mmol/L Carbon Dioxide 26 (21-32) mmol/L Anion Gap 14.5 H (7-13) mEq/L BUN 7 (7-18) mg/dL Creatinine 0.89 (0.55-1.02) mg/dL Est Cr Clr Drug Dosing 52.93 mL/min Estimated GFR (MDRD) > 60 BUN/Creatinine Ratio 7.9 (No establ ref range) Glucose 95 (70-99) mg/dL Calcium 8.3 L (8.5-10.1) mg/dL Total Bilirubin 0.3 (0.2-1.0) mg/dL AST 10 L (15-37) U/L ALT 19 (14-59) U/L Alkaline Phosphatase 140 H (46-116) U/L C-Reactive Protein 2.1 H (0.0-0.9) mg/dL B-Natriuretic Peptide 23 (0-100) pg/ml Total Protein 7.5 (6.4-8.2) g/dL Albumin 3.4 (3.4-5.0) g/dL Globulin 4.1 Albumin/Globulin Ratio 0.8 Meds: Medications Discontinued Medications Generic Name Dose Route Start Last Admin Trade Name Freq PRN Reason Stop Dose Admin Albuterol/Ipratropium 3 ml 02/16/21 01:11 02/16/21 01:15 Albuterol/Ipratropium 3.0-0.5 Mg/3 Ml Neb Soln NEB 02/16/21 01:12 3 ml ONETIME ONE Administration Azithromycin 500 mg 02/16/21 02:14 Azithromycin 250 Mg Tab PO 02/16/21 02:15 ONETIME ONE Prednisone 40 mg 02/16/21 02:14 Prednisone 20 Mg Tab PO 02/16/21 02:15 ONETIME ONE - Radiology Interpretation Free Text/Narrative:: Chest xray: See rad report Departure - Departure Time of Disposition: 02:16 Disposition: Home, Self-Care 01 Condition: Fair Clinical Impression: COPD exacerbation - Discharge Information *PRESCRIPTION DRUG MONITORING PROGRAM REVIEWED*: No *COPY OF PRESCRIPTION DRUG MONITORING REPORT IN PATIENT DAVE: No Instructions: Chronic Obstructive Pulmonary Disease, [id number], Chronic Obstructive Pulmonary Disease Exacerbation, Piot-by-Ewxq Forms: ED Department Discharge Additional Instructions: Rx: Azithromycin 250 mg once daily for the next 4 days beginning on Rx: Prednisone 40 mg once daily for the next 4 days beginning on Continue using your nebulizers and inhalers as prescribed Follow-up with your primary care provider Rx: Tessalon Perles 100 mg as directed Sepsis Event Note (ED) - Evaluation Sepsis Screening Result: No Definite Risk - Focused Exam Vital Signs: Vital Signs Temp Pulse Resp BP Pulse Ox 02/16/21 00:56 118/73 02/16/21 00:46 98 F 100 20 132/105 H 93 L - My Orders Last 24 Hours: My Active Orders 02/16/21 01:11 RT Aerosol Therapy [RC] ASDIRECTED 02/16/21 01:13 Chest 1V Frontal [CR] Stat - Assessment/Plan Last 24 Hours: My Active Orders 02/16/21 01:11 RT Aerosol Therapy [RC] ASDIRECTED 02/16/21 01:13 Chest 1V Frontal [CR] Stat
[2021-02-16] MEDS ORDERED: predniSONE 20 MG Tab PO ONE (02:14)
[2021-02-16] MEDS ORDERED: Azithromycin 250 MG Tab PO ONE (02:14)
[2021-02-16] MEDS ORDERED: Benzonatate 100 MG Cap PO ONE (02:25)
--- NOTE | 2021-02-16 05:33 | CR ---
PROCEDURE INFORMATION: Exam: XR Chest Exam date and time: 02/16/2021 1:27 AM Age: 70 years old Clinical indication: Pain; Other: Chest; Additional info: Chest pain TECHNIQUE: Imaging protocol: XR of the chest. Views: 1 view. COMPARISON: CR Chest 1V Frontal 07/10/2020 12:13 PM FINDINGS: Lungs: Interval somewhat prominent lung volumes. Still no consolidation. Pleural spaces: Still no pneumothorax or apparent pleural fluid. Heart/Mediastinum: Still no cardiomegaly. Vasculature: Continued slight aortic elongation. Bones/joints: No apparent acute bony disease. IMPRESSION: Conceivable interval air trapping. No other acute finding.
== END 2021-02-16 02:30 | disposition home or self-care (01) ==
LOC: DL.ED 00:41
DX: J44.1 Chronic obstructive pulmonary disease with (acute) exacerbation (principal); Z72.0 Tobacco use; Z88.1 Allergy status to other antibiotic agents; Z79.899 Other long term (current) drug therapy
CPT/HCPCS: 36415; 71045; 80053; 83880; 85025; 86140; 99285; A9270; J7512; 99283; J7620-GY

== ENCOUNTER 2021-05-11 06:30 | Day surgery (SDC) | payer MEDICARE, OTHER ==
[2021-05-11] MEDS ORDERED: fentaNYL 100 MCG/2 ML SDV IV ONE ×3 (06:31→07:19)
[2021-05-11] MEDS ORDERED: Midazolam 1 MG/ML 2 ML SDV IV ONE ×7 (06:31→07:35)
--- NOTE | 2021-05-11 15:41 | OR ---
DATE: 05/11/2021 PROCEDURE: Total colonoscopy, narrow-band imaging, and multiple pinch biopsies. INSTRUMENT USED: PCF-H190DL Olympus video colonoscope. PREMEDICATIONS: Fentanyl 100 mcg intravenous, Versed 3 mg intravenous. Nasal O2 cannula. The procedure was done under pulse oximetry, BP recording, and batch operator. INDICATION: The patient with iron-deficiency anemia and previous inadequate study due to poor bowel prep. Colonoscopic examination is done for detection of any polypoid lesions and removal, endoscopic hemostasis therapy if needed. DESCRIPTION OF PROCEDURE: Initial rectal exam showed external hemorrhoidal tags. Rigid anoscopy showed small internal hemorrhoids without bleeding from them. The colonoscope was passed with ease to the ileocecal area. Photographs were taken of the normal-appearing cecum, identified by double-bulged ileocecal folds. No bleeding was noted from any of the visualized areas at the commencement of the examination. The bowel preparation was found to be adequate, Linwood scale 3 in all the regions, total score 9. In the proximal ascending colon, 5 mm sized benign-appearing "lipomatoid" submucosal benign lesion was noted. NBI views were obtained. Photographs were taken. Multiple pinch biopsies were obtained and sent for histopathology. No stricture. No vascular ectasia. No large isolated ulcerations seen. No evidence of diffuse inflammatory bowel disease in the form of friability, contact bleeding, or ulcerations. No polyp or tumor mass identified. Probing the proximal sides of folds and flexures using adequate distention and clearing up the stool material, withdrawal of the scope was made, cecum to rectum time over 6 minutes. No bleeding was noted from any of the visualized areas at the completion of examination. IMPRESSION: External and internal hemorrhoids.Benign ascending colon submucosal lesion. The patient tolerated the procedure well. [facility] /[id number] LEE
--- NOTE | 2021-05-12 07:30 | LETTER ---
05/11/2021 RE: SANDOVAL KARLA M : 1950 Mony Rose, [facility] [address] [facility] [address] Dear Ms. Rose: Ms. Karla Mosher had colonoscopic examination done this morning, and she tolerated the procedure well. I herewith send a copy of the endoscopy note and photographs for your review. Thank you. Sincerely, [facility] /[id number]
== END 2021-05-11 09:46 | disposition home or self-care (01) ==
LOC: DL.ENDO 06:30
PROVIDERS: ATTEND Internal Medicine Gastroenterology
DX: D72.820 Lymphocytosis (symptomatic) (principal); D50.9 Iron deficiency anemia, unspecified; K64.4 Residual hemorrhoidal skin tags; K64.8 Other hemorrhoids; J44.9 Chronic obstructive pulmonary disease, unspecified; Z90.49 Acquired absence of other specified parts of digestive tract
CPT/HCPCS: 45380; J2250; J3010; J7042; 88305

== ENCOUNTER 2025-01-23 17:06 | Emergency (ER) | payer MEDICARE, OTHER ==
[2025-01-23] MEDS: Ketorolac 30 MG/ML SDV IM ONE (17:52)
== END 2025-01-23 18:50 | disposition home or self-care (01) ==
LOC: DL.ED 17:06
DX: M25.511 Pain in right shoulder (principal); M25.561 Pain in right knee; Z90.49 Acquired absence of other specified parts of digestive tract; J44.89 Other specified chronic obstructive pulmonary disease; Z79.899 Other long term (current) drug therapy; Z79.82 Long term (current) use of aspirin; Z88.1 Allergy status to other antibiotic agents; Z91.048 Other nonmedicinal substance allergy status; W19.XXXA Unspecified fall, initial encounter
CPT/HCPCS: 73030; 73562; 73660; 96372; 99283; J1885

== ENCOUNTER 2025-01-28 02:05 | Emergency (ER) | payer MEDICARE, OTHER ==
[2025-01-28] MEDS: Acetaminophen/HYDROcodone 325-5 MG Tab PO ONE (02:22)
[2025-01-28] MEDS: Take Home: Acetaminophen/HYDROcodone 325-5 MG, 5 Tab Pack PO ONE (03:26)
[2025-01-28] MEDS: Acetaminophen/HYDROcodone 325-5 MG Tab PO PRN (03:42)
== END 2025-01-28 04:10 | disposition home or self-care (01) ==
LOC: DL.ED 02:05
DX: S42.332A Displaced oblique fracture of shaft of humerus, left arm, initial encounter for closed fracture (principal); J45.909 Unspecified asthma, uncomplicated; Z88.1 Allergy status to other antibiotic agents; Z91.09 Other allergy status, other than to drugs and biological substances; Z79.51 Long term (current) use of inhaled steroids; Z79.899 Other long term (current) drug therapy; Z79.82 Long term (current) use of aspirin; X58.XXXA Exposure to other specified factors, initial encounter; Y93.89 Activity, other specified
CPT/HCPCS: 29105; 70450; 72125; 73060-LT; 99283; 99284-25; A9270-GY